=== PATIENT | female | born 1975 | race Caucasian/White ===

== ENCOUNTER → 2017-06-27 | Outpatient (CLI) | payer OTHER ==
[~2017-06-27] MED LIST: CHOL100027 PO; HYDR0.5T PO; NRN600 PO; OMEGCAP2 PO; SIMV10TA2 PO; TYLOTC500 PO; ULT/50 PO
--- NOTE | 2017-06-28 14:26 | MAMMOGRAPHY REPORT ---
BILATERAL DIGITAL SCREENING MAMMOGRAM TOMOSYNTHESIS WITH CAD: 06/27/2017 CLINICAL HISTORY: Routine screening. Patient has no complaints. TECHNIQUE: Breast tomosynthesis in addition to standard 2D mammography was performed. Current study was also evaluated with a Computer Aided Detection (CAD) system. COMPARISON: Comparison is made to exams dated: 01/30/2016 ultrasound, 01/30/2016 mammogram - [facility], 01/28/2015 mammogram, 01/28/2015 ultrasound, 08/20/2014 mammogram, and 08/20/2014 ultras ound - [facility]. BREAST COMPOSITION: There are scattered areas of fibroglandular density in both breasts. FINDINGS: The parenchymal pattern is unchanged. No developing mass, architectural distortion or clus ter of suspicious microcalcifications is seen in either breast. IMPRESSION: ACR BI-RADS CATEGORY 2: BENIGN There is no mammographic evidence of malignancy. A 1 year screening mammogram is recommended. The pa tient will receive written notification of the results. Approximately 10% of breast cancers are not detected with mammography. A negative mammographic report should not delay biopsy if a clinically suggestive mass is present. Aileen Guidry M.D. ay/:06/27/2017 15:27:17 Vegetable Preparer: Miriam BRANDT(Ann)(Carol), [facility] letter sent: Normal 1/2 BI-RADS Code: ACR BI-RADS Category 2: Benign
== END | disposition home or self-care (01) ==
LOC: C.MAMM 13:14
PROVIDERS: ATTEND Obstetrics & Gynecology
DX: Z12.31 Encounter for screening mammogram for malignant neoplasm of breast (principal)

== ENCOUNTER → 2017-11-21 | Day surgery (SDC) | payer OTHER ==
[2017-11-11 09:27] VITALS: Ht 167.6 cm; Wt 131.8 kg
[~2017-11-21] VITALS: Ht 167.6 cm; Wt 131.8 kg
[~2017-11-21] MED LIST changes: +GABA600T PO; -HYDR0.5T PO; +HYDR200T5 PO; +LIDOCAINE HCL 2% 2 ML VIAL (20MG/ML) ONE; -NRN600 PO; +OMEP20TA PO; +ONDANSETRON INJ 2 MG/ML 2 ML VIAL ONE; +PROPOFOL IV EMULSION 10 MG/ML 20 ML VIAL ONE; +SODIUM CHLORIDE 0.9% 500ML 500 ML IV ONE; -TYLOTC500 PO; -ULT/50 PO
--- NOTE | 2017-11-21 11:14 | Endo History and Physical ---
History & Physical Date of Service: Nov 21, 2017. Chief Complaint: change in bowel habits,bloating Referring Physician: Dr. Rosita Grimes History of Present Illness 41 yo CF who presents for colonoscopy secondary to change in bowel habits and bloating. Past Surgical History Hx Cardiac Surgery: No Hx Internal Defibrillator: No Hx Pacemaker: No Hx Abdominal Surgery: No Hx of Implantable Prosthesis: No Hx Cancer Surgery: No Hx Thoracic Surgery: No Hx Orthopedic: No Hx Urinary Tract Surgery: No Family History Colon CA, Polyp Social History Smoking Status: Never Smoker Hx Substance Use: No Hx Alcohol Use: Yes (RARELY) Allergies Coded Allergies: Penicillins (Verified Allergy, Mild, UNKNOWN, 11/21/17) Citalopram (Verified Adverse Reaction, Unknown, anxiety, 11/11/17) Current Medications Reported Home Medications Medications Dose Route/Sig Max Daily Dose Days Date Category Omeprazole 20 Mg Tab 1 Tab PO DAILY 90 11/11/17 Reported Plaquenil (Hydroxychloroquine Sulfate) 200 Mg Tab 1 Tab PO BID 30 11/11/17 Reported Neurontin (Gabapentin) 600 Mg Tab 600 Mg PO BID 11/11/17 Reported Vitamin D 1000 Unit (Cholecalciferol) 1,000 Unit Cap 2,000 Inter.unit PO DAILY 04/01/15 Reported Fish Oil ([place]-3 Fatty Acids) 1 Cap Cap 1 Cap PO TID 04/01/15 Reported Zocor (Simvastatin) 10 Mg Tab 10 Mg PO QPM 10/30/11 Reported Vital Signs Weight (Kilograms): 131.82 Height (Feet): 5 Height (Inches): 6 Date Time Temp Pulse Resp B/P (MAP) Pulse Ox O2 Delivery O2 Flow Rate FiO2 11/21/17 10:50 36.8 87 18 134/76 (95) 95 Room Air Physical Exam General Appearance: WD/WN, no apparent distress Respiratory/Chest: Auscultation: breath sounds normal Cardiovascular: Heart Auscultation: RRR Abdomen: Bowel Sounds: normal Inspection & Palpation: soft, non-distended, no tenderness, guarding & rebound Assessment and Plan Assessment: 41 yo CF who presents for colonoscopy secondary to change in bowel habits and bloating. Plan: Proceed with colonoscopy.
--- NOTE | 2017-11-21 12:05 | Discharge Instructions ---
Endoscopy Patient Instructions Date / Procedure(s) Performed Nov 21, 2017. Colonoscopy Allergy Information Coded Allergies: Penicillins (Verified Allergy, Mild, UNKNOWN, 11/21/17) Citalopram (Verified Adverse Reaction, Unknown, anxiety, 11/11/17) Discharge Date / Findings Nov 21, 2017. Random colon biopsies Medication Instructions OK to resume all medications today as prescribed Reported Home Medications Medications Dose Route/Sig Max Daily Dose Days Date Category Omeprazole 20 Mg Tab 1 Tab PO DAILY 90 11/11/17 Reported Plaquenil (Hydroxychloroquine Sulfate) 200 Mg Tab 1 Tab PO BID 30 11/11/17 Reported Neurontin (Gabapentin) 600 Mg Tab 600 Mg PO BID 11/11/17 Reported Vitamin D 1000 Unit (Cholecalciferol) 1,000 Unit Cap 2,000 Inter.unit PO DAILY 04/01/15 Reported Fish Oil ([place]-3 Fatty Acids) 1 Cap Cap 1 Cap PO TID 04/01/15 Reported Zocor (Simvastatin) 10 Mg Tab 10 Mg PO QPM 10/30/11 Reported Provider Instructions Activity Restrictions - No exercising or heavy lifting for 24 hours. - Do not drink alcohol the day of the procedure. - Do not drive a car or operate machinery until the day after the procedure. - Do not make any important decisions or sign important papers in 24 hours after the procedure. Following Day: - Return to full activity which may include returning to work/school. Diet Start your diet with liquids and light foods (jello, soup, juice, toast). Then eat your usual diet if not nauseated. Treatment For Common After Affects For mild abdominal pain, bloating, or excessive gas: - Rest - Eat lightly - Lie on right side Follow-Up Information Follow-up with Dr. Rosita Grimes as scheduled Anesthesia Information What You Should Know You have had a procedure that required some medicine to reduce anxiety and discomfort. This treatment is called moderate sedation. After receiving the treatment, you may be sleepy, but you will be able to breathe on your own. The effects of the treatment may last for several hours. Follow these instructions along with Activity/Diet recommendations noted above: * Do NOT do anything where dizziness or clumsiness would be dangerous. * Rest quietly at home today, then you can be up and about tomorrow. * Have a responsible person stay with you the rest of today. * You may have had an I.V. today. If so, you may take the dressing off later today. Recommendations Call your doctor if: * Trouble breathing * Continuous vomiting for more than 24 hours * Temperature above 101 degrees * Severe abdominal pain or bloating * Pain not relieved by pain medicine ordered * There is increased drainage or redness from any incision * A large amount of rectal bleeding greater than 2-3 tablespoons. (If you had a polyp/s removed or have hemorrhoids, a small amount of blood - from the rectum is to be expected.) * You have any unanswered questions or concerns. IN THE EVENT OF A SERIOUS EMERGENCY, GO TO THE NEAREST EMERGENCY ROOM Your discharge instructions were prepared by provider Robin Kemp. Patient Instructions Signature Page Cristal Osuna Patient (or Guardian) Signature/Date: I have read and understand the instructions given to me by my caregivers. Caregiver/RN/Doctor Signature/Date: The above-named patient and/or guardian has received patient instructions on this date. + Original Patient Signature Page (only) stays with chart. Please make copy for patient.
--- NOTE | 2017-11-21 12:09 | GI REPORT ---
Patient Name: Cristal Osuna Procedure Date: 11/21/2017 11:30 AM Date of : 1975 Admit Type: Outpatient Age: 41 Gender: Female Attending MD: Robin Kemp DO Procedure: Colonoscopy Providers: Robin Kemp DO Referring MD: Rosita Grimes Indications: Change in bowel habits Medicines: Monitored Anesthesia Care Complications: No immediate complications. Estimated Blood Loss: Estimated blood loss: none. Procedure: Pre-Anesthesia Assessment: - Prior to the procedure, a History and Physical was performed, and patient medications and allergies were reviewed. The patient's tolerance of previous anesthesia was also reviewed. The risks and benefits of the procedure and the sedation options and risks were discussed with the patient. All questions were answered, and informed consent was obtained. Prior Anticoagulants: The patient has taken no previous anticoagulant or antiplatelet agents. ASA Grade Assessment: II - A patient with mild systemic disease. After reviewing the risks and benefits, the patient was deemed in satisfactory condition to undergo the procedure. After I obtained informed consent, the scope was passed under direct vision. Throughout the procedure, the patient's blood pressure, pulse, and oxygen saturations were monitored continuously. The Scope was introduced through the anus and advanced to the terminal ileum. The colonoscopy was performed without difficulty. The patient tolerated the procedure well. The quality of the bowel preparation was good. The terminal ileum, ileocecal valve, appendiceal orifice, and rectum were photographed. Findings: The perianal and digital rectal examinations were normal. The colon (entire examined portion) appeared normal. Several random biopsies were obtained with cold forceps for histology in the entire colon. Impression: - The entire examined colon is normal. - Several random biopsies were obtained in the entire colon. Recommendation: - Resume previous diet. - Continue present medications. - Repeat colonoscopy for surveillance based on pathology results. - Return to primary care physician as previously scheduled. Robin Kemp DO 11/21/2017 12:08:58 PM This report has been signed electronically. Note Initiated On: 11/21/2017 11:30 AM Number of Addenda: 0 I attest to the content of the Intraoperative Record and orders documented therein, exceptions below {[id number]}
--- NOTE | 2017-11-21 12:38 | Anesthesiology Progress Note ---
Anesthesia Post Op Note Date & Time Nov 21, 2017 at 12:37 Vital Signs Pain Intensity: 0 Vital Signs Past 12 Hours Date Time Temp Pulse Resp B/P (MAP) Pulse Ox O2 Delivery O2 Flow Rate FiO2 11/21/17 12:25 80 18 123/85 (98) 96 Room Air 11/21/17 12:10 85 18 123/74 (90) 96 Room Air 11/21/17 10:50 36.8 87 18 134/76 (95) 95 Room Air Notes Mental Status: alert / awake / arousable, participated in evaluation Pt Amnestic to Procedure: Yes Nausea / Vomiting: adequately controlled Pain: adequately controlled Airway Patency, RR, SpO2: stable & adequate BP & HR: stable & adequate Hydration State: stable & adequate Anesthetic Complications: no major complications apparent
[2017-11-21 12:40] VITALS: BP 131/86; PULSE 77; O2SAT 96
== END | disposition home or self-care (01) ==
LOC: C.GI 10:20
PROVIDERS: ATTEND Internal Medicine
DX: R19.4 Change in bowel habit (principal); K21.9 Gastro-esophageal reflux disease without esophagitis; F32.9 Major depressive disorder, single episode, unspecified; Z88.0 Allergy status to penicillin; Z80.0 Family history of malignant neoplasm of digestive organs

== ENCOUNTER → 2018-02-10 | Outpatient (CLI) | payer OTHER ==
[~2018-02-10] MED LIST changes: -LIDOCAINE HCL 2% 2 ML VIAL (20MG/ML) ONE; -ONDANSETRON INJ 2 MG/ML 2 ML VIAL ONE; -PROPOFOL IV EMULSION 10 MG/ML 20 ML VIAL ONE; -SODIUM CHLORIDE 0.9% 500ML 500 ML IV ONE
--- NOTE | 2018-02-11 05:41 | PAP/PSG TECHNICIAN REPORT ---
[facility] Frame Feeder Polysomnogram Report Study name: None Report date: 02/11/2018 Study date: 02/10/2018 Referring Physician: Dr. Kevin Kohler DO Name: MARY KATE COX Interpreting Physician: Kevin Kohler D.O. Date of : 1975 Frame Feeder: GIANLUCA Padgett. Sex: Female Age: 42 StudyType: PSG PAP Weight: 303.3 lbs Height: 42 years, Height 5' 5" Neck Circum:17.25inches BMI: 50.47 Medications: Omeprazole 20mg, PEG-3350/electrolytes 236gm, [place] 3 Fish Oil, Simvastatin 10mg, Gabapentin 600mg, Plaquenil 200mg, Estrace 0.1mg/gm, Vit D Patient History Study started on room air with 5cwp CPAP in room #8. 42 yr old female here [facility] for a titration study. She has been using cpap since 2001 at a setting of 8cwp. She has gained about 50 pounds. Her ESS=9/24. Neck circ=17.25inches. She has been feeling tired lately. She uses an old model of a nasal cushion system that they don't even make anymore. She is a mouth breather and [facility] will be trying a full-face mask. Parameters Monitored NPSG: E1-M2, E2-M1, Fp1-M2, Fp2-M1, F3-M2, F4-M2, F4-M1, C3-M2, C4-M2, C4-M1, O1-M2, O2-M2, O2-M1, T3-M2, T4-M1, P3-M2, P4-M1, CHIN1, CHIN2, HR, EKG, Legs, PFLOW, SNOR, FLOW, CFLOW, Tidal Volume, THOR, ABDO, SpO2, PLTH, CPRESS, ETCO2 Wave, ETCO2, pH Sleep Architecture Sleep Stages Time at Lights Off 10:34:29 PM STAGES Time (min.) TST (%) Time at Lights On 5:17:59 AM Wake 59.5 -- Total Recording Time (TRT) 404.00 min. N1 8.0 2 Total Sleep Period (TSP) 369.0 min. N2 214.0 62 Total Sleep Time (TST) 344.0min. N3 67.5 20 Awake Time 60.0 min. REM 54.5 16 Wake after Sleep Onset 42.0 min. Sleep Efficiency (SE) 85 % Sleep Onset Latency (DAWNA) 17.5 min. Number of Stage 1 Shifts None Awakenings 11 Stage Changes 48 Number of REM periods 5 REM 54.5 16 REM Latency 115.5 min. NREM 289.5 84 Body Position Analysis Supine Right Left Side Prone Vertical Total Sleep Time (min.) 48.0 310.8 0.0 310.83 0.0 0.0 Total Sleep Time (%) 10% 90% 0% 90 0% N/A% Total Sleep Time REM (min.) 0.0 54.5 0.0 None 0.0 0.0 Total Sleep Time NREM (min.) 33.2 256.3 0.0 None 0.0 0.0 Intermittent Wake (min.) 14.9 44.6 0.0 None 0.0 0.0 Total Sleep Period (%) 11% None None None None None Arousals Myoclonus (PLM) * Events Count Index Events Count Index Spontaneous 9 2 Events Awake (PLMW) 52 52.4 Respiratory 4 0.7 Events Asleep w/ Arousal (PLMA) 2 0.3 PLM 1 0 Events Asleep w/o Arousal (PLMS) 17 3.0 Snoring 4 1 Total Asleep 19 3.3 Total 18 3 Total 71 11 Respiratory Analysis * CA OA MA CH H RERA Total Count 0 0 0 0 8 0 8 Index 0.0 0.0 0.0 0 1.4 0 1.4 Mean Duration 0.0 0.0 0.0 0.00 29.4 0.0 29.4 Longest Duration 0.0 0.0 0.0 0.00 0.0 0.0 56.5 Respiratory Event Summary Total Supine ~Supine Right Left Prone REM NREM Apneas Count 0 0 0 0 N/A N/A 0 0 Index 0.0 0 0 0.0 N/A N/A 0 0 Hypopneas (4% Desat) Count 8 0 8 8 N/A N/A 0 8 Index 1.4 0.0 2 1.5 N/A N/A 0.0 1.7 Apneas & All Hypopneas Count 8 0 8 8 N/A N/A 0 8 Index 1.4 0 2 2 N/A N/A 0.0 1.7 Respiratory Events (Framework Developer+All Hyp+RERA) Count 8 0 8 8 N/A N/A 0 8 Index 1.4 0 2 1.5 N/A N/A 0.0 1.7 Respiratory Related Arousal Count 4 0 4 4 N/A N/A 0 4 Index 0.7 0 1 1 N/A N/A 0 1 Snoring Analysis Supine Right Left Prone REM NREM Total Snore duration 0.9 min Snores count 17 13 N/A N/A 0 30 30 Snore mean duration 1.8 Sec Snores index 31 3 N/A N/A 0.0 6.2 5.2 TST with snoring (%) 0.3% Desaturation Event Summary: Minimum %SpO2 Event Count Mean/Min/Max Duration(sec.) Desaturation Index % Time In Bed > 90 37 31.1 / 8.8 / 58.5 9.2 59.9 86 - 90 8 27.0 / 10.0 / 46.0 3.0 40.0 81 - 85 0 N/A 0.0 0.1 76 - 80 0 N/A 0.0 0.0 71 - 75 0 N/A 0.0 0.0 66 - 70 0 N/A 0.0 0.0 61 - 65 0 N/A 0.0 0.0 56 - 60 0 N/A 0.0 0.0 51 - 55 0 N/A 0.0 0.0 < 50 0 N/A 0.0 0.0 Total REM NREM Awake <50% 0.0 min. 0.0 min. 0.0 min. 0.0 min. 51 - 60% 0.0 min. 0.0 min. 0.0 min. 0.0 min. 61 - 70% 0.0 min. 0.0 min. 0.0 min. 0.0 min. 71 - 80% 0.0 min. 0.0 min. 0.0 min. 0.0 min. 81 - 90% 161.2 min. 6.7 min. 139.0 min. 15.5 min. 91 - 100% 240.9 min. 47.8 min. 150.4 min. 42.7 min. Average 91 92 91 92 Minimum SpO2 85 88 85 85 Desaturation Event Index 5.8 0.0 2.7 26.2 # Desat. Events below 89% 15 N/A 7 8 Time(%) with Saturation below 89% 3.5 0.0 3.0 0.5 Time(min.) with Saturation below 89% 14.3 0.1 12.0 2.2 Time (mins) REM (mins) NREM (mins) % of TST SpO2 Below 90% 13 N/A N13 19.0 SpO2 Below 88% 4 0 0 1 Heart Rate Analysis Min (bpm) Max (bpm) Average (bpm) Awake 65 108 81 NREM 58 102 76 REM 57 85 73 Overall 57 102 76 Supplemental O2 Values Minimum O2 level: None Value Start Time End Time Frame Feeder Comments Ms. Cox slept in the right and supine positions. No cardiac arrhythmia or PLM's noted. No bruxism noted. CPAP was initiated at +5 CMH2O and up-titrated to a level of +6 CMH2O. A small Quattro Air full face mask by [employer] was used during titration. She did not use the restroom during the night. She stated that she slept fairly well but her abdomen was full of air. The final report will be interpreted and signed by a sleep physician. The completed physician report will then be placed in the patient medical record. Therapy Event: Therapy (cm H20) 0 5 6 Total Time at Pressure (min.) 0.4 78.0 325.1 TST at Pressure (min.) 0.0 49.9 294.1 # Periods 1 1 1 Sleep Onset (min.) N/A 17.1 0.0 REM Onset (min.) N/A N/A 54.6 Sleep Efficiency % 0 64 90 Wakefulness (%) 100.0 36.0 9.5 Wakefulness (min.) 0.4 28.1 31.0 NREM 1 (%) 0.0 3.8 1.5 NREM 1 (min.) 0.0 3.0 5.0 NREM 2 (%) 0.0 14.6 62.3 NREM 2 (min.) 0.0 11.4 202.6 NREM 3 (%) 0.0 45.5 9.8 NREM 3 (min.) 0.0 35.5 32.0 REM (%) 0.0 0.0 16.8 REM (min.) 0.0 0.0 54.5 # Arousals N/A 5 13 Arousal Index N/A 6.0 2.7 # Snore N/A 10 20 Snore Index N/A 12.0 4.1 AHI N/A 4.8 0.8 AHI Supine N/A N/A 0.0 AHI Non-Supine N/A 4.8 0.9 NREM AHI N/A 4.8 1.0 REM AHI N/A N/A 0.0 RDI N/A 4.8 0.8 # Obstructive N/A 0 0 # Central Ap N/A 0 0 # Mixed N/A 0 0 # Hypopneas N/A 4 4 RERAS N/A 0 0 Total Respiratory Events N/A 4 4 Time Below SpO2 89.00% (min.) 0.0 2.3 9.8 Mean NREM SpO2 (%) N/A 90 91 Mean REM SpO2 (%) N/A N/A 92 Mean Sleep SpO2 (%) N/A 90 91 Min NREM SpO2 (%) N/A 85 85 Min REM SpO2 (%) N/A N/A 88 Position Supine (min.) 0.0 0.0 33.2 Position Non-supine (min.) 0.0 49.9 260.9 LM Index Sleep N/A 10.8 2.0 LM Index NREM N/A 10.8 1.8 LM Index REM N/A N/A 3.3 Mean Heart Rate (bpm) N/A 81 75 Min Heart Rate (bpm) N/A 75 57
--- NOTE | 2018-02-15 21:14 | POLYSOMNOGRAPH REPORT ---
CLINICAL DATA: The patient is a 42-year-old female with a history of sleep apnea since 2001. Her initial apnea hypopnea index was 97.3 representing severe sleep apnea. She has been on nasal CPAP at 8 cm. Her last titration was 2009. She has gained 50 pounds in the past 10 months. She is not sleeping well. She has been having nocturnal gasping and she is not feeling refreshed. The [place] sleepiness scale score is 9. This was an in-lab CPAP re-titration. SLEEP ARCHITECTURE: The total sleep period was 369 minutes. The total sleep time was 344 minutes. The sleep efficiency was 85%. This would be mildly reduced from normal. The sleep latency was 17.5 minutes. Wake after sleep onset was elevated at 42 minutes. The REM latency was prolonged at 115.5 minutes. There were 3 REM periods during the night. Sleep consisted of stage N1 2%, stage N2 62%, stage N3 20%, stage REM 16%. AROUSAL DATA: The patient had 18 arousals including 4 snoring arousals, 1 PLM arousal, 4 respiratory arousals, and 9 spontaneous arousals. The arousal index was 3. PLM DATA: The patient had a total of 19 periodic limb movements of sleep for a PLM index of 3.3. There were 2 arousals, associated with limb movements for a PLM arousal index of 0.3. EKG: The minimum heart rate was 57 beats per minute. The average heart rate was 76 beats per minute. No arrhythmia noted. RESPIRATORY DATA: The patient's respiratory events were treated with nasal CPAP. She had a total of 8 respiratory events, all hypopneas. Hypopneas were scored according to the 4% desaturation rule. The mean duration of the hypopneas was 29.4 seconds. The apnea hypopnea index was 1.4. At the final pressure of 6 cm, the apnea hypopnea index was 0.8. OXIMETRY DATA: The average saturation for the night was 91%. The minimum saturation was 85%. There was a total of 14.3 minutes with saturations less than 89%. At the final pressure, there were no significant desaturations. CONDENSER TUBE TENDER COMMENTS: Ms. Osuna slept in the right and supine positions. No cardiac arrhythmia noted. No bruxism noted. CPAP was initiated at 5 cm and up titrated to a level of 6 cm. A small [employer] Quattro Air full face mask was used. She did not use the restroom during the night. She stated that she slept fairly well but her abdomen was full of air. IMPRESSION: Obstructive sleep apnea -- resolved with nasal CPAP at 6 cm. COMMENTS: The patient did well with this titration study. She previously had been using nasal pillows. She is, however, a mouth breather and others had noticed that she was opening her mouth. Thus, a full face mask was tried. It appears that she can be well treated with a slightly lower pressure than previously. RECOMMENDATIONS: 1. It is advised that the patient's CPAP be set at 6 cm. 2. The patient does need a new CPAP machine. Hers is old, greater than 7 years. She does not currently have access for compliance data. 3. Mask of choice is to be ordered. The patient is very concerned that she will have problems with a full facemask. If the nasal mask is utilized, she might try a chin strap. 4. Weight loss is advised in light of the elevation of body mass index at 50.47. 5. She should allow sufficient sleep time of 7.5-8 hours of sleep per night and she should have a regular sleep-wake schedule.
== END | disposition home or self-care (01) ==
LOC: C.NEUR 21:00
PROVIDERS: ATTEND Internal Medicine Pulmonary Disease
DX: G47.33 Obstructive sleep apnea (adult) (pediatric) (principal)

== ENCOUNTER 2020-05-15 17:04 | Inpatient (IN) ==
[2020-05-15] MEDS ORDERED: diphenhydrAMINE 50 MG/ML VIAL IV STA (18:32)
[2020-05-15] MEDS ORDERED: ACETAMINOPHEN 1,000 MG/100 ML VIAL IV STA (18:32)
[2020-05-15] MEDS ORDERED: SODIUM CHLORIDE 0.65% NA SOLN 45 ML (OCEAN) ONE (18:32)
[2020-05-15] MEDS ORDERED: SODIUM CHLORIDE 0.9% 1000ML 1,000 ML IV ONE (18:32)
[2020-05-15] MEDS ORDERED: guaiFENesin 600 MG TABCR PO STA (18:32)
[2020-05-15] MEDS ORDERED: DEXAMETHASONE SOD INJ 10 MG/ML VIAL IV ONE (18:32)
[2020-05-15] MEDS ORDERED: ALBUT/IPRATROP 3MG/0.5MG NEB 3 ML VIAL NEB ONE (18:35)
[2020-05-15 19:00] LABS: Basophils # (auto) 0.02 K/uL (0-0.2); Basophils % (auto) 0.3 %; Eosinophils # (auto) 0.01 K/uL (0-0.5); Eosinophils % (auto) 0.2 %; Hematocrit (blood only) 39.2 % (37-47); Hemoglobin 12.3 g/dL (12.0-16.0); Immature Granulocytes # (auto) 0.01 K/uL (0.00-0.02); Immature Granulocytes % (auto) 0.2 %; Lymphocytes # (auto) 2.13 K/uL (1.2-3.4); Lymphocytes % (auto) 32.4 %; Mean Corpuscular Hgb Conc 31.4 g/dL (32-36); Mean Corpuscular Volume 86.2 fL (80-100); Monocytes % (auto) 6.1 %; Neutrophils # (auto) 4.01 K/uL (1.4-6.5); Neutrophils % (auto) 60.8 %; Platelet Count 261 K/uL (130-400); RDW Standard Deviation 50.5 fL (36.4-46.3); Red Blood Count 4.55 M/uL (4.2-5.4); White Blood Count 6.58 K/uL (4.8-10.8)
--- NOTE | 2020-05-15 19:03 | Emergency Department Note ---
Impression & Plan Pneumonia due to COVID-19 virus, Hypoxia, Shortness of breath ED Provider Note NAME: MARY KATE COX AGE: 44 SEX: F ARRIVES VIA: Walk-In INFORMANT: Patient, ED PROVIDER(S): Rico Mendenhall MD CHIEF COMPLAINT: Covid19, cough, shortness of breath PLAN: Disposition: Admit MEDICAL DECISION MAKING: The patient is a pleasant 44-year-old woman with a past medical history of SHYANN on nocturnal CPAP, history of Sjogren's syndrome on Plaquenil, hyperlipidemia, GERD who presents emerged department for evaluation of after having worsening cough, congestion and shortness of breath in the setting of having acute onset of fever, body aches and respiratory symptoms Tuesday with subsequent outpatient COVID-19 PCR test resulting as positive. The patient works at [employer] while they have had positive cases that they were made aware of but she is not aware of being in direct contact with any of these individuals and has not herself been directly contacted as a part of their contact tracing. Otherwise she reports she lives by herself and does not go out to large gatherings and has been being careful. She reports her shortness of breath has progressively been getting worse despite using [id number] Mucinex and being started on doxycycline by her PCP prior to her Covid results as she has a history of respiratory infections requiring antibiotics. On arrival the patient is fatigued and mildly dyspneic appearing but no acute distress, afebrile with stable vital signs. On exam she appears clinically dry. She does have a scant intermittent wheeze but is otherwise clear though with a frequent semiproductive cough. Given the patient's bronchospastic component to her symptoms with audible wheeze on exam she was treated with dose of dexamethasone as well as continuous DuoNeb in addition to expectorant and antihistamine. EKG without overt acute ischemia. Chest x-ray does demonstrate bilateral pulmonary interstitial opacities which given the patient's positive COVID-19 status likely reflects COVID-19 pneumonia. WBC, H/H and platelets within normal limits. Potassium 3.2 and electrolytes otherwise unremarkable. Chemistry without acidosis. LFTs unremarkable. Troponin negative/undetectable. BNP within normal limits. Lipase within normal limits. Upon reevaluation patient was feeling improved after her treatment and had resolution of her persistent cough and wheeze in addition to improved work of breathing. Unfortunately, however, despite being observed almost an hour after her nebulizer treatment she was persistently hypoxic to 88% on room air. Thus, given the patient's hypoxia in the setting of her COVID-19 infection reasonable to admit the patient for further management. The patient is agreeable with this plan. Case was discussed with MARIA ELENA He hospitalist, who will evaluate the patient for admission. Triage Nursing notes reviewed and agree them. Prior medical records reviewed Vital Signs: reviewed and remarkable for hypoxia. Differential diagnosis: Cardiac ischemia, aortic dissection, pulmonary embolism, pneumothorax, pneumonia, pericarditis, myocarditis, esophageal rupture, GERD, cholecystitis, pancreatitis, musculoskeletal, as well as other pathologies. ER treatment provided: See below. Diagnostics interpreted by me: ECG: Sinus rhythm with premature supra ventricular complexes, 90 bpm, no overt ST elevation or depression, QTC 426, QRS 94. Cardiac Monitoring: An order for continuous cardiac monitoring was placed and demonstrated Sinus rhythm with premature supra ventricular complexes, 90 bpm Laboratory studies: See below Imaging studies: R chest 1V portable CLINICAL HISTORY: Atypical chest pain COMPARISON STUDY: 11/02/2018 FINDINGS: The heart is the upper limits of normal in size. There are bilateral interstitial opacities, edema versus infectious/inflammatory process. Clinical and radiographic follow-up is recommended. There are no significant pleural effusions.[ IMPRESSION: 1. Bilateral pulmonary interstitial opacities, edema versus an infectious/inflammatory process. Clinical and radiographic follow-up recommended. Consultation(s): MARIA ELENA He hospitalist. HPI: The patient is a pleasant 44-year-old woman with a past medical history of SHYANN on nocturnal CPAP, history of Sjogren's syndrome on Plaquenil, hyperlipidemia, GERD who presents emerged department for evaluation of after having worsening cough, congestion and shortness of breath in the setting of having acute onset of fever, body aches and respiratory symptoms Tuesday evening with subsequent outpatient COVID-19 PCR test resulting as positive. The patient works at [employer] while they have had positive cases that they were made aware of she is not aware of being in direct contact with any of these individuals and has not herself been directly contacted as a part of their contact tracing. Otherwise she reports she lives by herself and does not go out to large gatherings and has been being careful. She reports her shortness of breath has progressively been getting worse despite using [id number] Mucinex and being started on doxycycline by her PCP prior to her Covid results as she has a history of respiratory infections requiring antibiotics. ROS: See above HPI for pertinent positives & negatives. A total of 10 systems reviewed and were otherwise negative. PAST MEDICAL HISTORY:See Below PAST SURGICAL HISTORY:See Below FAMILY HISTORY:See Below SOCIAL HISTORY:See Below HOME MEDICATIONS:See Below ALLERGIES:See Below VITALS:See Below PHYSICAL EXAMINATION: GENERAL: Awake, alert, fatigued-appearing, in no distress, BMI 49.2 HENT: Normocephalic, atraumatic. Oropharynx with dry mucous membranes and othe rwise unremarkable. EYES: Normal conjunctiva. Sclera non-icteric. NECK: Supple. No nuchal rigidity. FROM. No JVD. RESPIRATORY: Scant intermittent wheeze and otherwise clear. Mildly dyspneic with slight increased work of breathing. CARDIAC: Tachycardic rate, normal rhythm. Extremities warm and well perfused. Pulses equal. ABDOMEN: Soft, non-distended. No tenderness to palpation. No rebound or gua rding. No masses. RECTAL: Deferred. MUSCULOSKELETAL: Chest examination reveals no tenderness. The back is symmetrical on inspection without obvious abnormality. There is no CVA tenderness to palpation. No joint edema. LOWER EXTREMITIES: Calves are equal size bilaterally and non-tender. No edema. No discoloration. NEURO: Normal sensorium. No sensory or motor deficits noted. SKIN: No rash or jaundice noted. Rico Mendenhall MD Past Med/Surg History Medical History Bladder mass leiomyoma GERD (gastroesophageal reflux disease) Hyperlipidemia Impaired fasting glucose Obstructive sleep apnea Sjogrens syndrome with peripheral neuropathy and Raynaud's Small fiber neuropathy Vitamin D deficiency Surgical History H/O breast biopsy History of colonoscopy Family History Mother Ovarian cancer Grandmother (Paternal) Myocardial infarction Uncle Prostate cancer Colonic polyp Denies family history of Breast cancer Social History Smoking Status: Never smoker Second Hand Exposure: No; Hx Alcohol Use: No Hx Substance Use: No Preferred Language: Setswana Communication Ability: Effective Visual Impairment: No Limitations Hearing Ability: Normal [employer] Required: No Beliefs That Will Affect Care: None marital status: Single Current Living Situation: Alone current occupational status: unemployed Feels Safe at Home: Yes Dental Care, Regularly: Yes Physical Activity Frequency: Daily Assistive Devices: CPAP and Glasses Allergies Allergies Allergy/AdvReac Type Severity Reaction Status Date / Time Penicillins Allergy Mild Unknown Verified 05/15/20 22:18 citalopram AdvReac Unknown Anxiety Verified 05/15/20 22:18 Home Meds Home Medications Medication Instructions Recorded Confirmed hydroxychloroquine [Plaquenil] 200 mg PO BID 10/19/18 05/15/20 furosemide 40 mg PO DAILY 11/27/18 05/15/20 sennosides 8.6 mg-docusate sodium 2 tab PO QPM tab 05/06/19 05/15/20 50 mg tablet gabapentin 300 mg capsule 300 mg PO BID 01/11/20 05/15/20 cholecalciferol (vitamin D3) 2,000 unit PO DAILY 05/15/20 05/15/20 [Vitamin D3] Previous Rx's Medication Instructions Recorded simvastatin 10 mg tablet 10 mg PO HS #90 tab 04/10/20 doxycycline hyclate 100 mg capsule 100 mg PO BID #14 cap 05/12/20 Results & Data (ED) Vital Signs Vital Signs - 24 hr 05/15/20 17:08 05/15/20 19:13 05/15/20 19:20 Temperature 37.1 C Temperature Source Oral Pulse Rate 105 H 86 85 Pulse Rate [Right Finger] Pulse Rate from SpO2 Sensor 86 86 Respiratory Rate 22 22 26 H Respiratory Effort / Characteristics Short of Breath Respiratory Depth Normal Blood Pressure 157/84 H 142/89 H Blood Pressure Mean 108 95 Pulse Oximetry 94 93 91 Oxygen Delivery Method Room Air Oxygen Flow Rate Sepsis Recent Fever Within 48 Hours No Sepsis New/Unexplained Change in Mental Status N/A Sepsis Action Taken by Nursing No Action Required Oxygen Flow Rate - Titration Pulse Oximetry Post Tiitration 05/15/20 19:30 05/15/20 20:00 05/15/20 20:10 Temperature Temperature Source Pulse Rate 84 85 Pulse Rate [Right Finger] 85 Pulse Rate from SpO2 Sensor 84 83 Respiratory Rate 27 H 23 16 Respiratory Effort / Characteristics Non-Labored Spontaneous Respiratory Depth Blood Pressure 136/85 134/83 Blood Pressure Mean 93 106 Pulse Oximetry 92 91 92 Oxygen Delivery Method Nasal Cannula Oxygen Flow Rate Sepsis Recent Fever Within 48 Hours Sepsis New/Unexplained Change in Mental Status Sepsis Action Taken by Nursing Oxygen Flow Rate - Titration Pulse Oximetry Post Tiitration 05/15/20 20:30 05/15/20 21:00 05/15/20 21:10 Temperature Temperature Source Pulse Rate 81 91 H 90 Pulse Rate [Right Finger] Pulse Rate from SpO2 Sensor 80 86 89 Respiratory Rate 23 21 26 H Respiratory Effort / Characteristics Respiratory Depth Blood Pressure 140/80 144/75 H Blood Pressure Mean 105 96 Pulse Oximetry 98 98 97 Oxygen Delivery Method Oxygen Flow Rate Sepsis Recent Fever Within 48 Hours Sepsis New/Unexplained Change in Mental Status Sepsis Action Taken by Nursing Oxygen Flow Rate - Titration Pulse Oximetry Post Tiitration 05/15/20 21:20 05/15/20 21:30 05/15/20 21:37 Temperature 36.6 C Temperature Source Pulse Rate 92 H 97 H 97 H Pulse Rate [Right Finger] Pulse Rate from SpO2 Sensor 89 97 H Respiratory Rate 22 22 22 Respiratory Effort / Characteristics Respiratory Depth Blood Pressure 163/88 H Blood Pressure Mean 103 Pulse Oximetry 97 97 97 Oxygen Delivery Method Room Air Room Air Oxygen Flow Rate Sepsis Recent Fever Within 48 Hours Sepsis New/Unexplained Change in Mental Status Sepsis Action Taken by Nursing Oxygen Flow Rate - Titration Pulse Oximetry Post Tiitration 05/15/20 21:40 05/15/20 21:50 05/15/20 21:54 Temperature Temperature Source Pulse Rate 106 H 102 H Pulse Rate [Right Finger] Pulse Rate from SpO2 Sensor 110 H 103 H Respiratory Rate 26 H 20 Respiratory Effort / Characteristics Respiratory Depth Blood Pressure Blood Pressure Mean Pulse Oximetry 89 L 89 L 87 L Oxygen Delivery Method Room Air Oxygen Flow Rate Sepsis Recent Fever Within 48 Hours Sepsis New/Unexplained Change in Mental Status Sepsis Action Taken by Nursing Oxygen Flow Rate - Titration 2 Pulse Oximetry Post Tiitration 90 05/15/20 22:00 05/15/20 22:10 05/15/20 22:20 Temperature Temperature Source Pulse Rate 107 H 107 H 110 H Pulse Rate [Right Finger] Pulse Rate from SpO2 Sensor 108 H 108 H 105 H Respiratory Rate 19 27 H 27 H Respiratory Effort / Characteristics Respiratory Depth Blood Pressure 138/76 Blood Pressure Mean 99 Pulse Oximetry 91 92 92 Oxygen Delivery Method Oxygen Flow Rate Sepsis Recent Fever Within 48 Hours Sepsis New/Unexplained Change in Mental Status Sepsis Action Taken by Nursing Oxygen Flow Rate - Titration Pulse Oximetry Post Tiitration 05/15/20 22:30 05/15/20 22:31 05/15/20 22:40 Temperature Temperature Source Pulse Rate 108 H 108 H 108 H Pulse Rate [Right Finger] Pulse Rate from SpO2 Sensor 108 H 106 H 104 H Respiratory Rate 27 H 33 H 31 H Respiratory Effort / Characteristics Respiratory Depth Blood Pressure 135/70 Blood Pressure Mean 90 Pulse Oximetry 92 92 92 Oxygen Delivery Method Nasal Cannula Oxygen Flow Rate 2 Sepsis Recent Fever Within 48 Hours Sepsis New/Unexplained Change in Mental Status Sepsis Action Taken by Nursing Oxygen Flow Rate - Titration Pulse Oximetry Post Tiitration 05/15/20 22:50 05/15/20 23:00 05/15/20 23:10 Temperature Temperature Source Pulse Rate 103 H 105 H 106 H Pulse Rate [Right Finger] Pulse Rate from SpO2 Sensor 102 H 102 H 106 H Respiratory Rate 23 26 H 32 H Respiratory Effort / Characteristics Respiratory Depth Blood Pressure Blood Pressure Mean Pulse Oximetry 93 91 93 Oxygen Delivery Method Oxygen Flow Rate Sepsis Recent Fever Within 48 Hours Sepsis New/Unexplained Change in Mental Status Sepsis Action Taken by Nursing Oxygen Flow Rate - Titration Pulse Oximetry Post Tiitration Laboratory Data Attestation: I reviewed the patient's lab results. Result diagrams: 05/15/20 18:46 05/15/20 18:46 Lab Results 05/15/20 05/15/20 05/15/20 Range/Units 18:46 18:46 18:46 WBC 6.58 (4.8-10.8) K/uL RBC 4.55 (4.2-5.4) M/uL Hgb 12.3 (12.0-16.0) g/dL Hct 39.2 (37-47) % MCV 86.2 (80-100) fL MCH 27.0 (25-34) pg MCHC 31.4 L (32-36) g/dL RDW Std Deviation 50.5 H (36.4-46.3) fL RDW Coeff of Nahid 16.0 H (11.5-14.5) % Plt Count 261 (130-400) K/uL MPV 10.0 (7.4-10.4) fL Immature Gran % (Auto) 0.2 % Neut % (Auto) 60.8 % Lymph % (Auto) 32.4 % [place] % (Auto) 6.1 % Eos % (Auto) 0.2 % Baso % (Auto) 0.3 % Neut # (Auto) 4.01 (1.4-6.5) K/uL Lymph # (Auto) 2.13 (1.2-3.4) K/uL [place] # (Auto) 0.40 (0.11-0.59) K/uL Eos # (Auto) 0.01 (0-0.5) K/uL Baso # (Auto) 0.02 (0-0.2) K/uL Immature Gran # (Auto) 0.01 (0.00-0.02) K/uL ESR (0-21) mm/hr PT 10.7 (9.0-12.0) Seconds INR 1.0 (0.9-1.1) APTT 29.5 (21.0-31.0) Seconds PTT Ratio 1.1 Sodium 140 (136-145) mmol/L Potassium 3.2 L (3.5-5.1) mmol/L Chloride 106 (98-107) mmol/L Carbon Dioxide 28 (21-32) mmol/L Anion Gap 6.0 (3-11) BUN 9 (7-18) mg/dl Creatinine 0.79 (0.6-1.2) mg/dl Est Cr Clr Drug Dosing 123.3 ml/min Est GFR ( Amer) 104.0 Est GFR (Non-Af Amer) 89.8 BUN/Creatinine Ratio 11.5 (10-20) Glucose 118 H (70-99) mg/dl Calcium 8.7 (8.5-10.1) mg/dl Phosphorus 2.8 (2.5-4.9) mg/dl Magnesium 2.2 (1.8-2.4) mg/dl Ferritin 65.5 (8-388) ng/ml Total Bilirubin 0.3 (0.2-1) mg/dl Direct Bilirubin < 0.1 (0-0.2) mg/dl AST 24 (15-37) U/L ALT 30 (12-78) U/L Alkaline Phosphatase 75 (45-117) U/L Total Creatine Kinase 347 H (26-192) U/L Troponin I < 0.015 (0-0.045) ng/ml C-Reactive Protein 5.02 H (0-0.29) mg/dl NT-Pro-B Natriuret Pep 24 (0-450) pg/ml Total Protein 8.0 (6.4-8.2) gm/dl Albumin 2.9 L (3.4-5.0) gm/dl Globulin 5.1 H (2.5-4.0) gm/dl Albumin/Globulin Ratio 0.6 L (0.9-2) Lipase 98 (73-393) U/L Procalcitonin (0-0.5) ng/ml HCG, Qual (Negative) 05/15/20 05/15/20 05/15/20 Range/Units 18:46 18:46 18:46 WBC (4.8-10.8) K/uL RBC (4.2-5.4) M/uL Hgb (12.0-16.0) g/dL Hct (37-47) % MCV (80-100) fL MCH (25-34) pg MCHC (32-36) g/dL RDW Std Deviation (36.4-46.3) fL RDW Coeff of Nahid (11.5-14.5) % Plt Count (130-400) K/uL MPV (7.4-10.4) fL Immature Gran % (Auto) % Neut % (Auto) % Lymph % (Auto) % [place] % (Auto) % Eos % (Auto) % Baso % (Auto) % Neut # (Auto) (1.4-6.5) K/uL Lymph # (Auto) (1.2-3.4) K/uL [place] # (Auto) (0.11-0.59) K/uL Eos # (Auto) (0-0.5) K/uL Baso # (Auto) (0-0.2) K/uL Immature Gran # (Auto) (0.00-0.02) K/uL ESR 85 H (0-21) mm/hr PT (9.0-12.0) Seconds INR (0.9-1.1) APTT (21.0-31.0) Seconds PTT Ratio Sodium (136-145) mmol/L Potassium (3.5-5.1) mmol/L Chloride (98-107) mmol/L Carbon Dioxide (21-32) mmol/L Anion Gap (3-11) BUN (7-18) mg/dl Creatinine (0.6-1.2) mg/dl Est Cr Clr Drug Dosing ml/min Est GFR ( Amer) Est GFR (Non-Af Amer) BUN/Creatinine Ratio (10-20) Glucose (70-99) mg/dl Calcium (8.5-10.1) mg/dl Phosphorus (2.5-4.9) mg/dl Magnesium (1.8-2.4) mg/dl Ferritin (8-388) ng/ml Total Bilirubin (0.2-1) mg/dl Direct Bilirubin (0-0.2) mg/dl AST (15-37) U/L ALT (12-78) U/L Alkaline Phosphatase (45-117) U/L Total Creatine Kinase (26-192) U/L Troponin I (0-0.045) ng/ml C-Reactive Protein (0-0.29) mg/dl NT-Pro-B Natriuret Pep (0-450) pg/ml Total Protein (6.4-8.2) gm/dl Albumin (3.4-5.0) gm/dl Globulin (2.5-4.0) gm/dl Albumin/Globulin Ratio (0.9-2) Lipase (73-393) U/L Procalcitonin < 0.05 (0-0.5) ng/ml HCG, Qual Negative (Negative) Administered Medications Enoxaparin Sodium (Enoxaparin Inj 40 Mg/0.4 Ml Syr) 40 mg SQ BID@ [facility] Stop: 06/15/20 00:29 Last Admin: 05/16/20 02:14 Dose: 40 mg Documented by: [id number] Gabapentin (Gabapentin 300 Mg Cap) 300 mg PO BID@ [facility] Stop: 06/15/20 00:29 Last Admin: 05/16/20 02:15 Dose: 300 mg Documented by: [id number] Discontinued Medications Albuterol (Albut/Ipratrop 3mg/0.5mg Neb 3 Ml Vial) 12 ml NEB ONE ONE Stop: 05/15/20 18:36 Last Admin: 05/15/20 20:09 Dose: 12 ml Documented by: [id number] Dexamethasone (Dexamethasone Sod Inj 10 Mg/Ml Vial) 10 mg IV NOW ONE Stop: 05/15/20 18:33 Last Admin: 05/15/20 19:07 Dose: 10 mg Documented by: [id number] Diphenhydramine HCl (Diphenhydramine 50 Mg/Ml Vial) 25 mg IV NOW STA Stop: 05/15/20 18:33 Last Admin: 05/15/20 19:07 Dose: 25 mg Documented by: [id number] Guaifenesin (Guaifenesin 600 Mg Tabcr) 600 mg PO NOW STA Stop: 05/15/20 18:33 Last Admin: 05/15/20 19:08 Dose: 600 mg Documented by: [id number] Sodium Chloride (Nss 1000ml) 1,000 mls @ 999 mls/hr IV .Q1H1M ONE Stop: 05/15/20 19:32 Last Infusion: 05/15/20 21:07 Dose: 0 mls/hr Documented by: [id number] Admin: 05/15/20 18:53 Dose: 999 mls/hr Documented by: [id number] Acetaminophen (Ofirmev) 1,000 mg in 100 mls @ 400 mls/hr IV NOW STA Stop: 05/15/20 18:46 Last Infusion: 05/15/20 21:07 Dose: 0 mls/hr Documented by: [id number] Admin: 05/15/20 19:07 Dose: 400 mls/hr Documented by: [id number] Remdesivir 200 mg/ Sodium (Chloride) 250 mls @ 125 mls/hr IV NOW ONE; Protocol Stop: 05/16/20 02:29 Last Admin: 05/16/20 02:14 Dose: 125 mls/hr Documented by: [id number] Potassium Chloride (Potassium Chloride 20 Meq Tabcr) 40 meq PO NOW STA Stop: 05/15/20 22:02 Last Admin: 05/16/20 00:04 Dose: 40 meq Documented by: [id number] Sodium Chloride (Sodium Chloride 0.65% Na Soln 45 Ml ([place])) 2 sprays NA NOW ONE Stop: 05/15/20 18:33 Last Admin: 05/15/20 19:08 Dose: 2 sprays Documented by: [id number] Discharge Plan Visit Data Chief Complaint: Shortness of Breath/Dyspnea Stated Complaint: SOB, COV + ED Provider: Rico Mendenhall Discharge Problem: Pneumonia due to COVID-19 virus, Hypoxia, Shortness of breath Patient Disposition: Admitted As Inpatient Discharge Instructions Interventions: ED Discharge Assessment Last Done: 05/15/20 23:34
[2020-05-15 19:14] LABS: Partial Thromboplastin Ratio 1.1; Partial Thromboplastin Time 29.5 Seconds (21.0-31.0); Prothrombin Time 10.7 Seconds (9.0-12.0)
--- NOTE | 2020-05-15 19:15 | XRay Report ---
XR chest 1V portable CLINICAL HISTORY: Atypical chest pain COMPARISON STUDY: 11/02/2018 FINDINGS: The heart is the upper limits of normal in size. There are bilateral interstitial opacities , edema versus infectious/inflammatory process. Clinical and radiographic follow-up is recommended. T here are no significant pleural effusions.[ IMPRESSION: 1. Bilateral pulmonary interstitial opacities, edema versus an infectious/inflammatory process. Clini iman and radiographic follow-up recommended. ACT 112: Negative or not required by law. Electronically signed by: Rohit Fortune M.D. 05/15/2020 7:14 PM
[2020-05-15 19:20] LABS: Alanine Aminotransferase 30 U/L (12-78); Albumin Level 2.9 gm/dl (3.4-5.0); Aspartate Aminotransferase 24 U/L (15-37); BUN Creatinine Ratio 11.5 (10-20); Bilirubin Direct < 0.1 mg/dl (0-0.2); Blood Urea Nitrogen 9 mg/dl (7-18); Calcium 8.7 mg/dl (8.5-10.1); Carbon Dioxide 28 mmol/L (21-32); Chloride 106 mmol/L (98-107); Creatinine Clr Calc Pharmacy 123.3 ml/min; Est GFR (Non-African American) 89.8; Glucose 118 mg/dl (70-99); Lipase 98 U/L (73-393); Magnesium 2.2 mg/dl (1.8-2.4); Potassium 3.2 mmol/L (3.5-5.1); Sodium 140 mmol/L (136-145)
[2020-05-15 19:23] LABS: Albumin Globulin Ratio 0.6 (0.9-2); Alkaline Phosphatase 75 U/L (45-117); Bilirubin,Total 0.3 mg/dl (0.2-1); Globulin 5.1 gm/dl (2.5-4.0); NT Pro B Type Natriuretic Pept 24 pg/ml (0-450); Phosphorus 2.8 mg/dl (2.5-4.9); Troponin I < 0.015 ng/ml (0-0.045)
[2020-05-15 19:27] LABS: Pregnancy Test, Serum Negative (Negative)
[2020-05-15] MEDS ORDERED: POTASSIUM CHLORIDE CRTAB 20 MEQ TABCR PO STA (22:01)
--- NOTE | 2020-05-15 23:49 | History & Physical Report ---
Date of Service May 15, 2020 Assessment & Plan (1) Pneumonia due to COVID-19 virus: 44yo C female presenting with Covid-19 associated PNA. Patient was diagnosed with Covid-19 on 05/12, reports symptoms of cough and SOB have been progressively worsening. Hypoxic in the ER to 87% on room air. She is currently on 2L NC saturating 93%. Patient lives alone. She works at [employer] where there have recently been several cases of Covid-19 diagnoses. She denies close contact with any known Covid-19 positive person and was not personally informed of a positive contact through contact tracing. Risk factors for severe disease include obesity (BMI=49.2), HTN, HLP, Impaired fasting glucose. Patient also with Sjogren's syndrome on home Plaquenil 200mg po BID. -Admit to medical -Check inflammatory markers - ESR, CRP, Ferritin. Check CK total -Check Procalcitonin to assess for secondary bacterial infection as well -Continue supplemental O2 as needed, maintain saturation >92% -Dexamethasone 10mg IV given in ER - will continue 6mg IV daily -Will initiate Remdesivir therapy - discussed with Pulmonary team -Will initiate treatment with convalescent plasma. Consent obtained via telephone while in the ER -Pepcid 40 mg po daily -Zinc supplement 220 mg po daily -Guaifenasin 1200mg po BID and Tessalon as needed for cough -Albuterol HFA as needed for SOB. Will try to avoid nebulized therapies as this increases risk for aerosolization and virus transmission -Lovenox 40mg SQ q 12 hours for DVT prophylaxis Present on Admission?: Yes (2) Sjogrens syndrome: Patient with Sjogrens syndrome -Continue Plaquenil 200mg po BID Present on Admission?: Yes (3) Hyperlipidemia: Chronic. -Continue Simvastatin 10mg po qHS Present on Admission?: Yes (4) GERD (gastroesophageal reflux disease): Chronic. Patient currently not on medications -Will initiate Pepcid 40mg po daily as above. Some evidence suggests that treatment with Pepcid is associated with improved outcomes, less ventilator use and less inflammatory response Present on Admission?: Yes (5) Vitamin D deficiency: Chronic. -Continue Vitamin D supplement Present on Admission?: Yes (6) Obstructive sleep apnea: Chronic. Patient uses CPAP at home. Was recently evaluated by Dr. De La Paz for CPAP compliance - note states that she has been having some difficulty with CPAP compliance since her Covid-19 diagnosis -Encourage CPAP compliance qHS Present on Admission?: Yes (7) Impaired fasting glucose: Patient currently not on medication -ISS coverage F/E/N - Heplock. K repletion with, Mg and PO4 within normal range, PO as tolerated Ppx - Lovenox 40 BID Code - Full Dispo - Admit to medical, Covid-19 unit Present on Admission?: Yes History of Present Illness Chief Complaint: Cough, SOB, CAMPBELL Primary Care Provider: Rosita Grimes MD Cristal Osuna is a 44yo C female with history of Sjogren's syndrome, HTN, HLP, impaired fasting glucose and obesity presenting with Covid-19 PNA. Patient developed symptoms of fever/chills/cough/SOB on the evening of 05/11/20 then later developed watery diarrhea. She has been taking Tylenol OTC cough syrup as needed as well as cough lozenges dextromethorphan and Mucinex. She had testing for Covid-19 performed on 05/12/20 which was found to be positive. Patient's symptoms have been worsening. She has an ongoing cough as well as shortness of breath. She states that her ribs hurt but otherwise denies chest pain. No additional complaints at this time. ER Course: Tylenol 1gm, Albuterol 12mL neb, Dexamethasone 10mg IV, Benadryl 25mg IV, Guaifenesin 600mg PO, KCL 40mEqPO, NSS x 1L, NSS nasal Allergies Allergy/AdvReac Type Severity Reaction Status Date / Time Penicillins Allergy Mild Unknown Verified 05/15/20 22:18 citalopram AdvReac Unknown Anxiety Verified 05/15/20 22:18 Home Medications Home Medications Medication Instructions Recorded Confirmed Type hydroxychloroquine [Plaquenil] 200 mg PO BID 10/19/18 05/15/20 History furosemide 40 mg PO DAILY 11/27/18 05/15/20 History sennosides 8.6 mg-docusate sodium 2 tab PO QPM tab 05/06/19 05/15/20 History 50 mg tablet gabapentin 300 mg capsule 300 mg PO BID 01/11/20 05/15/20 History simvastatin 10 mg tablet 10 mg PO HS #90 tab 09/17/20 10/22/20 Rx doxycycline hyclate 100 mg capsule 100 mg PO BID #14 cap 05/12/20 05/15/20 Rx cholecalciferol (vitamin D3) 2,000 unit PO DAILY 05/15/20 05/15/20 History [Vitamin D3] Past Med/Surg History Medical History Bladder mass leiomyoma GERD (gastroesophageal reflux disease) Hyperlipidemia Impaired fasting glucose Obstructive sleep apnea Sjogrens syndrome with peripheral neuropathy and Raynaud's Small fiber neuropathy Vitamin D deficiency Surgical History H/O breast biopsy History of colonoscopy Family History Mother Ovarian cancer Grandmother (Paternal) Myocardial infarction Uncle Prostate cancer Colonic polyp Denies family history of Breast cancer Social History Smoking Status: Never smoker Second Hand Exposure: No; Hx Alcohol Use: Yes Alcohol type: other Hx Substance Use: No Preferred Language: Mauritanian Communication Ability: Effective Visual Impairment: No Limitations Hearing Ability: Normal Bander Required: No Beliefs That Will Affect Care: None marital status: Single Current Living Situation: Alone current occupational status: unemployed Feels Safe at Home: Yes Dental Care, Regularly: Yes Physical Activity Frequency: Daily Assistive Devices: Glasses Review of Systems Review of Systems: All systems reviewed & are unremarkable except as noted in HPI & below Physical Exam Physical Exam: General: patient resting comfortably, NAD, non-toxic in appearance, AA&O x 4, wearing a cloth face covering, on NC 2L Skin: warm, dry, intact, no rashes or lesions HEENT: NC/AT, PERRL, anicteric sclera, conjunctiva without injection, external ear normal to inspection and nontender, nares patent, moist mucus membranes, dentition intact, no oropharyngeal lesions, neck supple, trachea midline, no LAD, no thyromegaly, no JVD Heart: +S1/S2, regular, tachycardic, no m/r/g Lungs: equal air entry bilaterally, coarse breath sounds with end-expiratory wheezing Abd: +BS, soft, NT/ND, no masses/organomegaly/ascites Ext: warm, 2+ pulses in UE/LE bilaterally, no clubbing/cyanosis or edema Neuro: nonfocal, patient AA&O x 4, speech intact, no facial droop, moving all extremities on command with equal strength 5/5 Results & Data Results & Data ([facility]) Vital Signs (Past 12 Hours) Vital Signs Temp Pulse Pulse Resp BP Pulse Ox 05/15/20 21:54 87 L 05/15/20 21:37 97 H 22 97 05/15/20 21:30 36.6 C 97 H 22 163/88 H 97 05/15/20 21:20 92 H 22 97 05/15/20 21:10 90 26 H 97 05/15/20 21:00 91 H 21 144/75 H 98 05/15/20 20:30 81 23 140/80 98 05/15/20 20:10 85 16 92 05/15/20 20:00 85 23 134/83 91 05/15/20 19:30 84 27 H 136/85 92 05/15/20 19:20 85 26 H 91 05/15/20 19:13 86 22 142/89 H 93 05/15/20 17:08 37.1 C 105 H 22 157/84 H 94 Laboratory Results Lab Results 05/15/20 05/15/20 05/15/20 Range/Units 18:46 18:46 18:46 WBC 6.58 (4.8-10.8) K/uL RBC 4.55 (4.2-5.4) M/uL Hgb 12.3 (12.0-16.0) g/dL Hct 39.2 (37-47) % MCV 86.2 (80-100) fL MCH 27.0 (25-34) pg MCHC 31.4 L (32-36) g/dL RDW Std Deviation 50.5 H (36.4-46.3) fL RDW Coeff of Nahid 16.0 H (11.5-14.5) % Plt Count 261 (130-400) K/uL MPV 10.0 (7.4-10.4) fL Immature Gran % (Auto) 0.2 % Neut % (Auto) 60.8 % Lymph % (Auto) 32.4 % [place] % (Auto) 6.1 % Eos % (Auto) 0.2 % Baso % (Auto) 0.3 % Neut # (Auto) 4.01 (1.4-6.5) K/uL Lymph # (Auto) 2.13 (1.2-3.4) K/uL [place] # (Auto) 0.40 (0.11-0.59) K/uL Eos # (Auto) 0.01 (0-0.5) K/uL Baso # (Auto) 0.02 (0-0.2) K/uL Immature Gran # (Auto) 0.01 (0.00-0.02) K/uL PT 10.7 (9.0-12.0) Seconds INR 1.0 (0.9-1.1) APTT 29.5 (21.0-31.0) Seconds PTT Ratio 1.1 Sodium 140 (136-145) mmol/L Potassium 3.2 L (3.5-5.1) mmol/L Chloride 106 (98-107) mmol/L Carbon Dioxide 28 (21-32) mmol/L Anion Gap 6.0 (3-11) BUN 9 (7-18) mg/dl Creatinine 0.79 (0.6-1.2) mg/dl Est Cr Clr Drug Dosing 123.3 ml/min Est GFR ( Amer) 104.0 Est GFR (Non-Af Amer) 89.8 BUN/Creatinine Ratio 11.5 (10-20) Glucose 118 H (70-99) mg/dl Calcium 8.7 (8.5-10.1) mg/dl Phosphorus 2.8 (2.5-4.9) mg/dl Magnesium 2.2 (1.8-2.4) mg/dl Total Bilirubin 0.3 (0.2-1) mg/dl Direct Bilirubin < 0.1 (0-0.2) mg/dl AST 24 (15-37) U/L ALT 30 (12-78) U/L Alkaline Phosphatase 75 (45-117) U/L Troponin I < 0.015 (0-0.045) ng/ml NT-Pro-B Natriuret Pep 24 (0-450) pg/ml Total Protein 8.0 (6.4-8.2) gm/dl Albumin 2.9 L (3.4-5.0) gm/dl Globulin 5.1 H (2.5-4.0) gm/dl Albumin/Globulin Ratio 0.6 L (0.9-2) Lipase 98 (73-393) U/L HCG, Qual (Negative) 05/15/20 Range/Units 18:46 WBC (4.8-10.8) K/uL RBC (4.2-5.4) M/uL Hgb (12.0-16.0) g/dL Hct (37-47) % MCV (80-100) fL MCH (25-34) pg MCHC (32-36) g/dL RDW Std Deviation (36.4-46.3) fL RDW Coeff of Nahid (11.5-14.5) % Plt Count (130-400) K/uL MPV (7.4-10.4) fL Immature Gran % (Auto) % Neut % (Auto) % Lymph % (Auto) % [place] % (Auto) % Eos % (Auto) % Baso % (Auto) % Neut # (Auto) (1.4-6.5) K/uL Lymph # (Auto) (1.2-3.4) K/uL [place] # (Auto) (0.11-0.59) K/uL Eos # (Auto) (0-0.5) K/uL Baso # (Auto) (0-0.2) K/uL Immature Gran # (Auto) (0.00-0.02) K/uL PT (9.0-12.0) Seconds INR (0.9-1.1) APTT (21.0-31.0) Seconds PTT Ratio Sodium (136-145) mmol/L Potassium (3.5-5.1) mmol/L Chloride (98-107) mmol/L Carbon Dioxide (21-32) mmol/L Anion Gap (3-11) BUN (7-18) mg/dl Creatinine (0.6-1.2) mg/dl Est Cr Clr Drug Dosing ml/min Est GFR ( Amer) Est GFR (Non-Af Amer) BUN/Creatinine Ratio (10-20) Glucose (70-99) mg/dl Calcium (8.5-10.1) mg/dl Phosphorus (2.5-4.9) mg/dl Magnesium (1.8-2.4) mg/dl Total Bilirubin (0.2-1) mg/dl Direct Bilirubin (0-0.2) mg/dl AST (15-37) U/L ALT (12-78) U/L Alkaline Phosphatase (45-117) U/L Troponin I (0-0.045) ng/ml NT-Pro-B Natriuret Pep (0-450) pg/ml Total Protein (6.4-8.2) gm/dl Albumin (3.4-5.0) gm/dl Globulin (2.5-4.0) gm/dl Albumin/Globulin Ratio (0.9-2) Lipase (73-393) U/L HCG, Qual Negative (Negative) Diagnostic Findings XR chest 1V portable CLINICAL HISTORY: Atypical chest pain COMPARISON STUDY: 11/02/2018 FINDINGS: The heart is the upper limits of normal in size. There are bilateral interstitial opacities, edema versus infectious/inflammatory process. Clinical and radiographic follow-up is recommended. There are no significant pleural effusions.[ IMPRESSION: 1. Bilateral pulmonary interstitial opacities, edema versus an infectio us/inflammatory process. Clinical and radiographic follow-up recommended. ACT 112: Negative or not required by law. Electronically signed by: Rohit Fortune M.D. 05/15/2020 7:14 PM Dictated: 05/15/201912 Transcribed: 05/15/201912 ECG Additional Comments: EKG with NSR at 98, normal axis, UD=949, QRS=94, REm=475, no acute ischemic changes, occasional ectopic beat Code Status & VTE Plan Code Status Full Code VTE Prophylaxis Plan VTE Prophylaxis will be ordered: Yes PG Care Time/CCT Total # of Minutes Spent Total Time Spent with Patient: Total time spent is greater than 50% in coordination of care (as documented) at patient's floor/unit and/or counseling patient: Coding Level of Care Code 11373 Initial Inpt Care Lvl 3 Diagnoses Pneumonia due to COVID-19 virus U07.1; J12.89 Sjogrens syndrome M35.00 Sjogren's organ involvement: unspecified organ involvement Hyperlipidemia E78.5 Hyperlipidemia type: unspecified GERD (gastroesophageal reflux disease) K21.9 Esophagitis presence: esophagitis presence not specified Vitamin D deficiency E55.9 Obstructive sleep apnea G47.33 Impaired fasting glucose R73.01 (1) Sjogrens syndrome Sjogren's organ involvement: unspecified organ involvement Qualified Code(s): M35.00 - Sicca syndrome, unspecified (2) Hyperlipidemia Hyperlipidemia type: unspecified Qualified Code(s): E78.5 - Hyperlipidemia, unspecified (3) GERD (gastroesophageal reflux disease) Esophagitis presence: esophagitis presence not specified Qualified Code(s): K21.9 - Gastro-esophageal reflux disease without esophagitis
[2020-05-16] MEDS ORDERED: DOCUSATE SODIUM/SENNA 50/8.6MG TAB PO PRN (00:05)
[2020-05-16] MEDS ORDERED: GLUCOSE 40% GEL 15 GM TUBE PO PRN (00:05)
[2020-05-16] MEDS ORDERED: CARBOHYDRATES FOR HYPOGLYCEMIA PO PRN (00:05)
[2020-05-16] MEDS ORDERED: ACETAMINOPHEN 325 MG TAB PO PRN (00:05)
[2020-05-16] MEDS ORDERED: DEXTROSE 50% 50 ML SYRINGE IV PRN (00:05)
[2020-05-16] MEDS ORDERED: BENZONATATE 100 MG CAPSULE PO PRN (00:05)
[2020-05-16] MEDS ORDERED: ALBUTEROL HFA 8 GM INHALER INH PRN (00:05)
[2020-05-16] MEDS ORDERED: GLUCAGON FOR INJ 1 MG VIAL SQ PRN (00:05)
[2020-05-16] MEDS ORDERED: GLUCOSE 10 TABS/TUBE PO PRN (00:05)
[2020-05-16] MEDS ORDERED: REMDESIVIR 200 mg: Day 1 IV ONE (00:30)
[2020-05-16 00:35] LABS: C Reactive Protein 5.02 mg/dl (0-0.29); Creatine Kinase 347 U/L (26-192); Ferritin 65.5 ng/ml (8-388)
[2020-05-16] MEDS: ENOXAPARIN INJ 40 MG/0.4 ML SYR SQ SCH ×3 (02:14→19:38)
[2020-05-16] MEDS: GABAPENTIN 300 MG CAP PO SCH ×3 (02:15→19:39)
[2020-05-16] MEDS: NSS 30mL Flush, Days 1-5 IV SCH (04:59)
[2020-05-16 06:58] LABS: Basophils # (auto) 0.01 K/uL (0-0.2); Basophils % (auto) 0.2 %; Hematocrit (blood only) 36.8 % (37-47); Hemoglobin 11.5 g/dL (12.0-16.0); Immature Granulocytes # (auto) 0.01 K/uL (0.00-0.02); Immature Granulocytes % (auto) 0.2 %; Lymphocytes # (auto) 0.98 K/uL (1.2-3.4); Lymphocytes % (auto) 22.5 %; Mean Corpuscular Hemoglobin 27.3 pg (25-34); Mean Corpuscular Hgb Conc 31.3 g/dL (32-36); Mean Corpuscular Volume 87.2 fL (80-100); Mean Platelet Volume 10.2 fL (7.4-10.4); Monocytes # (auto) 0.12 K/uL (0.11-0.59); Monocytes % (auto) 2.8 %; Neutrophils # (auto) 3.23 K/uL (1.4-6.5); Neutrophils % (auto) 74.3 %; Platelet Count 280 K/uL (130-400); RDW Coefficient of Variation 16.3 % (11.5-14.5); RDW Standard Deviation 52.3 fL (36.4-46.3); Red Blood Count 4.22 M/uL (4.2-5.4); White Blood Count 4.35 K/uL (4.8-10.8)
[2020-05-16 07:06] LABS: D Dimer 660 ug/L FEU (0-500)
[2020-05-16 07:38] LABS: Alanine Aminotransferase 27 U/L (12-78); Albumin Level 2.7 gm/dl (3.4-5.0); Alkaline Phosphatase 70 U/L (45-117); Aspartate Aminotransferase 17 U/L (15-37); BUN Creatinine Ratio 11.9 (10-20); Bilirubin Direct < 0.1 mg/dl (0-0.2); Bilirubin,Total 0.2 mg/dl (0.2-1); Blood Urea Nitrogen 8 mg/dl (7-18); Calcium 8.2 mg/dl (8.5-10.1); Carbon Dioxide 28 mmol/L (21-32); Chloride 110 mmol/L (98-107); Creatinine Clr Calc Pharmacy 138.5 ml/min; Est GFR (African American) 118.4; Est GFR (Non-African American) 102.1; Glucose 187 mg/dl (70-99); Potassium 4.1 mmol/L (3.5-5.1); Sodium 141 mmol/L (136-145); Total Protein 7.4 gm/dl (6.4-8.2)
[2020-05-16] MEDS ORDERED: HYDROXYCHLOROQUINE SULFATE 200 MG TAB PO SCH (08:00)
--- NOTE | 2020-05-16 08:13 | Pulmonary Consultation ---
Date of Consultation May 16, 2020 Assessment & Plan (1) Pneumonia due to COVID-19 virus: Recommend continuing a 5-day course of remdesivir and checking LFTs. Continue Decadron 6 mg for 10 days or until she is discharged from the hospital. Convalescent plasma can be tried, but the patient refused. Obesity may likely complicate her hospitalization and her treatment. Weight loss is advised. CPAP should be continued when sleeping. Continue supplemental oxygen to maintain saturations of 92% or greater. Albuterol HFA can be used on a as needed basis. Continue high-dose VTE prophylaxis with Lovenox. Continue her statin. Pulmonary will follow from the periphery. Please call us with questions. Thank you. (2) Shortness of breath: (3) Cough: (4) Sjogrens syndrome: Sjogren's organ involvement: unspecified organ involvement Qualified Code(s): M35.00 - Sicca syndrome, unspecified History of Present Illness Reason for Consultation: Covid pneumonitis Requesting Physician: Hospitalist service Attending Physician: Maame Morelos MD History of Present Illness 44-year-old female with a past medical history of Sjogren's disease on Plaquenil, hypertension, hyperlipidemia and obesity with a BMI of 49.9 who presented to the hospital with Covid-like symptoms. She developed fevers chills and cough apparently on May 11 and then developed watery diarrhea. Her shortness of breath was worsening in her ribs began hurting. She came to the ER had received 10 mg of Decadron, Benadryl, guaifenesin, 1 L of saline and Tylenol. Admission was requested and pulmonary was consulted for remdesivir. She actually sees Dr. Jose F De La Paz in the clinic. Dr. De La Paz suggested that the patient go to the ER after a telephone note visit related to her obstructive s leep apnea. Laboratory data suggest leukopenia with anemia. Lymphocyte count is decreased at 980. D-dimer is elevated to 660. Renal function is stable at 0.71. COVID-19 PCR was positive on 05/12/2020. She received her first dose of remdesivir yesterday. She is on 40 mg p.o. daily Lasix. 40 mg twice daily of Lovenox was started. proBNP is 24. Procalcitonin is less than 0.05. Chest x- ray demonstrated bilateral pulmonary interstitial opacities. The patient apparently refused convalescent plasma. Notably, I did not physically see the patient aside for looking at her through the doorway due to the ID- pandemic. I am deferring to the hospitalist for their physical exam. The patient did tell me that she had a good night sleep and she is feeling better today. She does not appear to be in any distress. She is not currently on supplemental oxygen as she had just removed the CPAP from her face. Allergies Allergy/AdvReac Type Severity Reaction Status Date / Time Penicillins Allergy Mild Unknown Verified 05/15/20 22:18 citalopram AdvReac Unknown Anxiety Verified 05/15/20 22:18 Home Medications Home Medications Medication Instructions Recorded Confirmed Type hydroxychloroquine [Plaquenil] 200 mg PO BID 10/19/18 05/15/20 History furosemide 40 mg PO DAILY 11/27/18 05/15/20 History sennosides 8.6 mg-docusate sodium 2 tab PO QPM tab 05/06/19 05/15/20 History 50 mg tablet gabapentin 300 mg capsule 300 mg PO BID 01/11/20 05/15/20 History simvastatin 10 mg tablet 10 mg PO HS #90 tab 04/10/20 05/15/20 Rx doxycycline hyclate 100 mg capsule 100 mg PO BID #14 cap 05/12/20 05/15/20 Rx cholecalciferol (vitamin D3) 2,000 unit PO DAILY 05/15/20 05/15/20 History [Vitamin D3] Patient History Medical History Bladder mass leiomyoma GERD (gastroesophageal reflux disease) Hyperlipidemia Impaired fasting glucose Obstructive sleep apnea Sjogrens syndrome with peripheral neuropathy and Raynaud's Small fiber neuropathy Vitamin D deficiency Surgical History H/O breast biopsy History of colonoscopy Family History Mother Ovarian cancer Grandmother (Paternal) Myocardial infarction Uncle Prostate cancer Colonic polyp Denies family history of Breast cancer Social History Smoking Status: Never smoker Second Hand Exposure: No; Hx Alcohol Use: No Hx Substance Use: No Preferred Language: Romansh Communication Ability: Effective Visual Impairment: No Limitations Hearing Ability: Normal Hogshead Mat Inspector Required: No Beliefs That Will Affect Care: None marital status: Single Current Living Situation: Alone current occupational status: unemployed Feels Safe at Home: Yes Dental Care, Regularly: Yes Physical Activity Frequency: Daily Assistive Devices: CPAP and Glasses Review of Systems Review of Systems: Deferred due to the COVID- pandemic. Please refer to the hospitalist review of systems. Physical Exam Physical Exam: Deferred due to the COVID- pandemic. Please refer to the hospitalist review of systems and physical exam. She does not look like she is in any distress currently. Results & Data Results & Data ([facility]) Vital Signs (Past 12 Hours) Vital Signs Temp Pulse Pulse Resp BP BP Pulse Ox 05/16/20 03:46 74 14 96 05/16/20 01:34 81 20 94 05/16/20 00:07 98.2 F 102 H 20 142/85 H 93 05/15/20 23:30 101 H 25 H 133/75 92 05/15/20 23:20 106 H 26 H 93 05/15/20 23:10 106 H 32 H 93 05/15/20 23:00 105 H 26 H 91 05/15/20 22:50 103 H 23 93 05/15/20 22:40 108 H 31 H 92 05/15/20 22:31 108 H 33 H 135/70 92 05/15/20 22:30 108 H 27 H 92 05/15/20 22:20 110 H 27 H 92 05/15/20 22:10 107 H 27 H 92 05/15/20 22:00 107 H 19 138/76 91 05/15/20 21:54 87 L 05/15/20 21:50 102 H 20 89 L 05/15/20 21:40 106 H 26 H 89 L 05/15/20 21:37 97 H 22 97 05/15/20 21:30 97.9 F 97 H 22 163/88 H 97 05/15/20 21:20 92 H 22 97 05/15/20 21:10 90 26 H 97 05/15/20 21:00 91 H 21 144/75 H 98 05/15/20 20:30 81 23 140/80 98 I reviewed the vital signs, labs and imaging PG Care Time/CCT Total # of Minutes Spent Total Time Spent with Patient: Total time spent is greater than 50% in coordination of care (as documented) at patient's floor/unit and/or counseling patient: Coding Level of Care Code 59175 Inpt Consult Level 3 Diagnoses Pneumonia due to COVID-19 virus U07.1; J12.89 Shortness of breath R06.02 Cough R05 Sjogrens syndrome M35.00 Sjogren's organ involvement: unspecified organ involvement Time Spent (min) 46
--- NOTE | 2020-05-16 08:33 | Electrocardiogram Report ---
Test Reason : Blood Pressure : / mmHG Vent. Rate : 098 BPM Atrial Rate : 098 BPM P-R Int : 144 ms QRS Dur : 094 ms QT Int : 334 ms P-R-T Axes : 061 037 028 degrees QTc Int : 426 ms Sinus rhythm with Premature supraventricular complexes Otherwise normal ECG No previous ECGs available Confirmed by Roberto Burgess ([id number]) on 05/16/2020 8:33:30 AM Referred By: REFERRED SELF Confirmed By:Roberto Burgess
[2020-05-16] MEDS: CHOLECALCIFEROL 1,000 UNITS 25 MCG TAB PO SCH (08:59)
[2020-05-16] MEDS: FAMOTIDINE 40 MG TABLET PO SCH (08:59)
[2020-05-16] MEDS: FUROSEMIDE 40 MG TAB PO SCH (09:00)
[2020-05-16] MEDS: guaiFENesin 600 MG TABCR PO SCH ×2 (09:00→19:38)
[2020-05-16] MEDS ORDERED: DEXAMETHASONE SOD INJ 10 MG/ML VIAL IV SCH (09:00)
[2020-05-16] MEDS: ZINC SULFATE 220 MG CAPSULE PO SCH (09:01)
[2020-05-16] MEDS: INSULIN ASPART 100 UNITS/ML 3 ML PEN SC SCH ×4 (09:09→20:43)
[2020-05-16] MEDS: dexAMETHasone 6 MG in SYRINGE 0 ML IV SCH (10:23)
--- NOTE | 2020-05-16 18:37 | Hospitalist Progress Note ---
Date of Service May 16, 2020 Assessment & Plan (1) Pneumonia due to COVID-19 virus: This patient is a 44yo C female presenting with Covid-19 associated PNA. Patient was diagnosed with Covid-19 on 05/12, reports symptoms of cough and SOB have been progressively worsening. Hypoxic in the ER to 87% on room air. Patient lives alone. 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 She denies close contact with any known Covid-19 positive person and was not personally informed of a positive contact through contact tracing. Risk factors for severe disease include obesity (BMI=49.2), HTN, HLP, Impaired fasting glucose. Patient also with Sjogren's syndrome on home Plaquenil 200mg po BID. Somewhat improved today but remains in oxygen Markers of inflammation are elevated, procalcitonin is negative Do not suspect secondary bacterial pneumonia Remains on 1 to 2 L nasal cannula -Continue supplemental O2 as needed, maintain saturation >92% -Dexamethasone 10mg IV given in ER - will continue 6mg IV daily x10-day course -Continue remdesivir therapy x5-day course- discussed with Pulmonary team upon admission -Patient declined convalescent plasma -Continue Pepcid 40 mg po daily -Continue continue zinc supplement 220 mg po daily -Guaifenasin 1200mg po BID and Tessalon as needed for cough -Continue albuterol HFA as needed for SOB. -Lovenox 40mg SQ q 12 hours for DVT prophylaxis -Follow daily labs (2) Sjogrens syndrome: Patient with Sjogrens syndrome -Hold Plaquenil 200mg po BID while on Remdesivir due to interaction (3) Hyperlipidemia: Chronic. -Continue Simvastatin 10mg po qHS (4) GERD (gastroesophageal reflux disease): Chronic. Patient currently not on medications -Will initiate Pepcid 40mg po daily as above while on corticosteroid therapy. Some evidence suggests that treatment with Pepcid is associated with improved outcomes, less ventilator use and less inflammatory response (5) Vitamin D deficiency: Chronic. -Continue Vitamin D supplement (6) Obstructive sleep apnea: Chronic. Patient uses CPAP at home. Was recently evaluated by Dr. De La Paz for CPAP compliance - note states that she has been having some difficulty with CPAP compliance since her Covid-19 diagnosis -Encourage CPAP compliance qHS (7) Small fiber neuropathy: Secondary to Sjogren's syndrome -Continue gabapentin (8) Impaired fasting glucose: Hemoglobin A1c 6.5% in 12/2019, patient currently not on medication at home -ISS coverage here especially in the setting of IV dexamethasone With hyperglycemia in the 200s -Tighten down NovoLog coverage and add Lantus (9) DVT prophylaxis: Lovenox 40 BID Code - Full Dispo -continued stay on medical/surgical room on Covid precautions Admission and Anticipated Discharge Date Admission Date: May 15, 2020 Subjective Patient reports feeling a little bit better today. Still coughing but nonproductive. Walked the halls without oxygen and felt a little bit short of breath. Denies nausea or vomiting, no further diarrhea. She has some return of her appetite today. Review of Systems Review of Systems: All systems reviewed & are unremarkable except as noted in HPI & below Physical Exam Constitutional: WD/WN, vitals as above + obese Eyes: + anicteric sclerae Neck: trachea midline, no thyromegaly Respiratory: normal respiratory effort, lungs clear to auscultation Auscultation: + diminished lung sounds (Throughout) Cardiovascular: RRR, no murmur, no edema Chest (Breasts): Chest: normal inspection of chest Gastrointestinal (Abdomen): normal bowel sounds, soft, nontender, no hepatosplenomegaly Musculoskeletal: Extremities: extremities normal to inspection; no cyanosis and no clubbing Skin: no rashes, warm and dry Neurologic: moves all extremities and awake; no focal motor deficits Psychiatric: A+Ox3, euthymic affect Lymphatic: no lymphedema Results & Data Results & Data ([facility]) Vital Signs (Past 12 Hours) Vital Signs Temp Pulse Resp BP Pulse Ox 05/16/20 16:01 37.0 C 88 20 127/81 90 05/16/20 13:09 94 05/16/20 10:45 92 05/16/20 08:50 36.8 C 81 24 112/69 90 05/16/20 08:35 88 L Laboratory Results 05/16/20 05/16/20 05/16/20 Range/Units 20:17 16:34 12:24 WBC (4.8-10.8) K/uL RBC (4.2-5.4) M/uL Hgb (12.0-16.0) g/dL Hct (37-47) % MCV (80-100) fL MCH (25-34) pg MCHC (32-36) g/dL RDW Std Deviation (36.4-46.3) fL RDW Coeff of Nahid (11.5-14.5) % Plt Count (130-400) K/uL MPV (7.4-10.4) fL Immature Gran % (Auto) % Neut % (Auto) % Lymph % (Auto) % [place] % (Auto) % Eos % (Auto) % Baso % (Auto) % Neut # (Auto) (1.4-6.5) K/uL Lymph # (Auto) (1.2-3.4) K/uL [place] # (Auto) (0.11-0.59) K/uL Eos # (Auto) (0-0.5) K/uL Baso # (Auto) (0-0.2) K/uL Immature Gran # (Auto) (0.00-0.02) K/uL ESR (0-21) mm/hr D-Dimer (0-500) ug/L FEU Sodium (136-145) mmol/L Potassium (3.5-5.1) mmol/L Chloride (98-107) mmol/L Carbon Dioxide (21-32) mmol/L Anion Gap (3-11) BUN (7-18) mg/dl Creatinine (0.6-1.2) mg/dl Est Cr Clr Drug Dosing ml/min Est GFR ( Amer) Est GFR (Non-Af Amer) BUN/Creatinine Ratio (10-20) Glucose (70-99) mg/dl POC Glucose 217 H 179 H 120 H (70-99) mg/dl Calcium (8.5-10.1) mg/dl Ferritin (8-388) ng/ml Total Bilirubin (0.2-1) mg/dl Direct Bilirubin (0-0.2) mg/dl AST (15-37) U/L ALT (12-78) U/L Alkaline Phosphatase (45-117) U/L Total Creatine Kinase (26-192) U/L C-Reactive Protein (0-0.29) mg/dl Total Protein (6.4-8.2) gm/dl Albumin (3.4-5.0) gm/dl Procalcitonin (0-0.5) ng/ml 05/16/20 05/16/20 05/16/20 Range/Units 07:51 05:36 05:36 WBC 4.35 L (4.8-10.8) K/uL RBC 4.22 (4.2-5.4) M/uL Hgb 11.5 L (12.0-16.0) g/dL Hct 36.8 L (37-47) % MCV 87.2 (80-100) fL MCH 27.3 (25-34) pg MCHC 31.3 L (32-36) g/dL RDW Std Deviation 52.3 H (36.4-46.3) fL RDW Coeff of Nahid 16.3 H (11.5-14.5) % Plt Count 280 (130-400) K/uL MPV 10.2 (7.4-10.4) fL Immature Gran % (Auto) 0.2 % Neut % (Auto) 74.3 % Lymph % (Auto) 22.5 % [place] % (Auto) 2.8 % Eos % (Auto) 0.0 % Baso % (Auto) 0.2 % Neut # (Auto) 3.23 (1.4-6.5) K/uL Lymph # (Auto) 0.98 L (1.2-3.4) K/uL [place] # (Auto) 0.12 (0.11-0.59) K/uL Eos # (Auto) 0.00 (0-0.5) K/uL Baso # (Auto) 0.01 (0-0.2) K/uL Immature Gran # (Auto) 0.01 (0.00-0.02) K/uL ESR (0-21) mm/hr D-Dimer (0-500) ug/L FEU Sodium 141 (136-145) mmol/L Potassium 4.1 D (3.5-5.1) mmol/L Chloride 110 H (98-107) mmol/L Carbon Dioxide 28 (21-32) mmol/L Anion Gap 3.0 (3-11) BUN 8 (7-18) mg/dl Creatinine 0.71 (0.6-1.2) mg/dl Est Cr Clr Drug Dosing 138.5 ml/min Est GFR ( Amer) 118.4 Est GFR (Non-Af Amer) 102.1 BUN/Creatinine Ratio 11.9 (10-20) Glucose 187 H (70-99) mg/dl POC Glucose 154 H (70-99) mg/dl Calcium 8.2 L (8.5-10.1) mg/dl Ferritin (8-388) ng/ml Total Bilirubin 0.2 (0.2-1) mg/dl Direct Bilirubin < 0.1 (0-0.2) mg/dl AST 17 (15-37) U/L ALT 27 (12-78) U/L Alkaline Phosphatase 70 (45-117) U/L Total Creatine Kinase (26-192) U/L C-Reactive Protein (0-0.29) mg/dl Total Protein 7.4 (6.4-8.2) gm/dl Albumin 2.7 L (3.4-5.0) gm/dl Procalcitonin (0-0.5) ng/ml 05/16/20 05/15/20 05/15/20 Range/Units 05:36 18:46 18:46 WBC (4.8-10.8) K/uL RBC (4.2-5.4) M/uL Hgb (12.0-16.0) g/dL Hct (37-47) % MCV (80-100) fL MCH (25-34) pg MCHC (32-36) g/dL RDW Std Deviation (36.4-46.3) fL RDW Coeff of Nahid (11.5-14.5) % Plt Count (130-400) K/uL MPV (7.4-10.4) fL Immature Gran % (Auto) % Neut % (Auto) % Lymph % (Auto) % [place] % (Auto) % Eos % (Auto) % Baso % (Auto) % Neut # (Auto) (1.4-6.5) K/uL Lymph # (Auto) (1.2-3.4) K/uL [place] # (Auto) (0.11-0.59) K/uL Eos # (Auto) (0-0.5) K/uL Baso # (Auto) (0-0.2) K/uL Immature Gran # (Auto) (0.00-0.02) K/uL ESR 85 H (0-21) mm/hr D-Dimer 660 H* (0-500) ug/L FEU Sodium (136-145) mmol/L Potassium (3.5-5.1) mmol/L Chloride (98-107) mmol/L Carbon Dioxide (21-32) mmol/L Anion Gap (3-11) BUN (7-18) mg/dl Creatinine (0.6-1.2) mg/dl Est Cr Clr Drug Dosing ml/min Est GFR ( Amer) Est GFR (Non-Af Amer) BUN/Creatinine Ratio (10-20) Glucose (70-99) mg/dl POC Glucose (70-99) mg/dl Calcium (8.5-10.1) mg/dl Ferritin (8-388) ng/ml Total Bilirubin (0.2-1) mg/dl Direct Bilirubin (0-0.2) mg/dl AST (15-37) U/L ALT (12-78) U/L Alkaline Phosphatase (45-117) U/L Total Creatine Kinase (26-192) U/L C-Reactive Protein (0-0.29) mg/dl Total Protein (6.4-8.2) gm/dl Albumin (3.4-5.0) gm/dl Procalcitonin < 0.05 (0-0.5) ng/ml 05/15/20 Range/Units 18:46 WBC (4.8-10.8) K/uL RBC (4.2-5.4) M/uL Hgb (12.0-16.0) g/dL Hct (37-47) % MCV (80-100) fL MCH (25-34) pg MCHC (32-36) g/dL RDW Std Deviation (36.4-46.3) fL RDW Coeff of Nahid (11.5-14.5) % Plt Count (130-400) K/uL MPV (7.4-10.4) fL Immature Gran % (Auto) % Neut % (Auto) % Lymph % (Auto) % [place] % (Auto) % Eos % (Auto) % Baso % (Auto) % Neut # (Auto) (1.4-6.5) K/uL Lymph # (Auto) (1.2-3.4) K/uL [place] # (Auto) (0.11-0.59) K/uL Eos # (Auto) (0-0.5) K/uL Baso # (Auto) (0-0.2) K/uL Immature Gran # (Auto) (0.00-0.02) K/uL ESR (0-21) mm/hr D-Dimer (0-500) ug/L FEU Sodium (136-145) mmol/L Potassium (3.5-5.1) mmol/L Chloride (98-107) mmol/L Carbon Dioxide (21-32) mmol/L Anion Gap (3-11) BUN (7-18) mg/dl Creatinine (0.6-1.2) mg/dl Est Cr Clr Drug Dosing ml/min Est GFR ( Amer) Est GFR (Non-Af Amer) BUN/Creatinine Ratio (10-20) Glucose (70-99) mg/dl POC Glucose (70-99) mg/dl Calcium (8.5-10.1) mg/dl Ferritin 65.5 (8-388) ng/ml Total Bilirubin (0.2-1) mg/dl Direct Bilirubin (0-0.2) mg/dl AST (15-37) U/L ALT (12-78) U/L Alkaline Phosphatase (45-117) U/L Total Creatine Kinase 347 H (26-192) U/L C-Reactive Protein 5.02 H (0-0.29) mg/dl Total Protein (6.4-8.2) gm/dl Albumin (3.4-5.0) gm/dl Procalcitonin (0-0.5) ng/ml PG Care Time/CCT Total # of Minutes Spent Total Time Spent with Patient: Total time spent is greater than 50% in coordination of care (as documented) at patient's floor/unit and/or counseling patient: Coding Level of Care Code 76799 Subseq Hosp Care Lvl 3 Diagnoses Pneumonia due to COVID-19 virus U07.1; J12.89 Sjogrens syndrome M35.00 Sjogren's organ involvement: unspecified organ involvement Hyperlipidemia E78.5 Hyperlipidemia type: unspecified GERD (gastroesophageal reflux disease) K21.9 Esophagitis presence: esophagitis presence not specified Vitamin D deficiency E55.9 Obstructive sleep apnea G47.33 Small fiber neuropathy G62.9 Impaired fasting glucose R73.01 DVT prophylaxis Z29.9 (1) Sjogrens syndrome Sjogren's organ involvement: unspecified organ involvement Qualified Code(s): M35.00 - Sicca syndrome, unspecified (2) Hyperlipidemia Hyperlipidemia type: unspecified Qualified Code(s): E78.5 - Hyperlipidemia, unspecified (3) GERD (gastroesophageal reflux disease) Esophagitis presence: esophagitis presence not specified Qualified Code(s): K21.9 - Gastro-esophageal reflux disease without esophagitis
[2020-05-16] MEDS: SIMVASTATIN 10 MG TAB PO SCH (19:39)
[2020-05-16] MEDS: INSULIN GLARGINE SOLOSTAR 100 UNITS/ML 3 ML PEN SC SCH (22:00)
[2020-05-17] MEDS: NSS 30mL Flush, Days 1-5 IV SCH (02:21)
[2020-05-17 07:48] LABS: Basophils # (auto) 0.01 K/uL (0-0.2); Basophils % (auto) 0.2 %; Hematocrit (blood only) 37.1 % (37-47); Hemoglobin 11.5 g/dL (12.0-16.0); Immature Granulocytes # (auto) 0.01 K/uL (0.00-0.02); Immature Granulocytes % (auto) 0.2 %; Lymphocytes # (auto) 2.37 K/uL (1.2-3.4); Lymphocytes % (auto) 40.2 %; Mean Corpuscular Hemoglobin 27.1 pg (25-34); Mean Corpuscular Volume 87.5 fL (80-100); Mean Platelet Volume 10.2 fL (7.4-10.4); Monocytes # (auto) 0.43 K/uL (0.11-0.59); Monocytes % (auto) 7.3 %; Neutrophils # (auto) 3.07 K/uL (1.4-6.5); Neutrophils % (auto) 52.1 %; Platelet Count 327 K/uL (130-400); RDW Coefficient of Variation 16.4 % (11.5-14.5); RDW Standard Deviation 53.3 fL (36.4-46.3); Red Blood Count 4.24 M/uL (4.2-5.4); White Blood Count 5.89 K/uL (4.8-10.8)
[2020-05-17 08:13] LABS: Albumin Level 2.8 gm/dl (3.4-5.0); BUN Creatinine Ratio 14.9 (10-20); C Reactive Protein 2.03 mg/dl (0-0.29); Calcium 8.6 mg/dl (8.5-10.1); Creatinine Clr Calc Pharmacy 111.8 ml/min; Est GFR (African American) 91.3; Est GFR (Non-African American) 78.8; Magnesium 2.4 mg/dl (1.8-2.4); Potassium 3.5 mmol/L (3.5-5.1)
[2020-05-17 08:18] LABS: Albumin Globulin Ratio 0.6 (0.9-2); Bilirubin,Total 0.3 mg/dl (0.2-1); Ferritin 56.6 ng/ml (8-388); Globulin 4.6 gm/dl (2.5-4.0); Total Protein 7.4 gm/dl (6.4-8.2)
[2020-05-17 08:56] LABS: D Dimer 620 ug/L FEU (0-500)
[2020-05-17] MEDS: INSULIN ASPART 100 UNITS/ML 3 ML PEN SC SCH ×4 (09:13→20:32)
[2020-05-17] MEDS: dexAMETHasone 6 MG in SYRINGE 0 ML IV SCH (09:14)
[2020-05-17] MEDS: guaiFENesin 600 MG TABCR PO SCH ×2 (09:14→20:25)
[2020-05-17] MEDS: ZINC SULFATE 220 MG CAPSULE PO SCH (09:15)
[2020-05-17] MEDS: FUROSEMIDE 40 MG TAB PO SCH (09:15)
[2020-05-17] MEDS: ENOXAPARIN INJ 40 MG/0.4 ML SYR SQ SCH ×2 (09:15→20:24)
[2020-05-17] MEDS: CHOLECALCIFEROL 1,000 UNITS 25 MCG TAB PO SCH (09:16)
[2020-05-17] MEDS: GABAPENTIN 300 MG CAP PO SCH ×2 (09:16→20:25)
[2020-05-17] MEDS: FAMOTIDINE 40 MG TABLET PO SCH (09:16)
--- NOTE | 2020-05-17 17:11 | Hospitalist Progress Note ---
Date of Service May 17, 2020 Assessment & Plan (1) Pneumonia due to COVID-19 virus: This patient is a 44yo C female presenting with Covid-19 associated PNA. Patient was diagnosed with Covid-19 on 05/12, reports symptoms of cough and SOB have been progressively worsening. Hypoxic in the ER to 87% on room air. Patient lives alone. 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 She denies close contact with any known Covid-19 positive person and was not personally informed of a positive contact through contact tracing. Risk factors for severe disease include obesity (BMI=49.2), HTN, HLP, Impaired fasting glucose. Patient also with Sjogren's syndrome on home Plaquenil 200mg po BID. Is now markedly improved and weaned off oxygen Markers of inflammation are elevated but are coming down, procalcitonin is negat be Do not suspect secondary bacterial pneumonia -Continue supplemental O2 as needed, maintain saturation >92% -Will check 2 step walk test prior to discharge to ensure she does not need oxygen at home -Dexamethasone 10mg IV given in ER -have continued 6mg IV daily x10-day course and will convert to p.o. upon discharge -Continue remdesivir therapy x5-day course- discussed with Pulmonary team upon admission. I believe that she is doing well enough that she does not need to complete the 5-day course if she is otherwise ready for discharge to home tomorrow -Patient declined convalescent plasma -Continue Pepcid 40 mg po daily -Continue continue zinc supplement 220 mg po daily -Guaifenasin 1200mg po BID and Tessalon as needed for cough -Continue albuterol HFA as needed for SOB. -Lovenox 40mg SQ q 12 hours for DVT prophylaxis -Follow daily labs (2) Sjogrens syndrome: Patient with Sjogrens syndrome -Hold Plaquenil 200mg po BID while on Remdesivir due to interaction (3) Hyperlipidemia: Chronic. -Continue Simvastatin 10mg po qHS (4) GERD (gastroesophageal reflux disease): Chronic. Patient currently not on medications -Will initiate Pepcid 40mg po daily as above while on corticosteroid therapy. Some evidence suggests that treatment with Pepcid is associated with improved outcomes, less ventilator use and less inflammatory response (5) Vitamin D deficiency: Chronic. -Continue Vitamin D supplement (6) Obstructive sleep apnea: Chronic. Patient uses CPAP at home. Was recently evaluated by Dr. De La Paz for CPAP compliance - note states that she has been having some difficulty with CPAP compliance since her Covid-19 diagnosis -Encourage CPAP compliance qHS (7) Small fiber neuropathy: Secondary to Sjogren's syndrome -Continue gabapentin (8) Impaired fasting glucose: Hemoglobin A1c 6.5% in 12/2019, patient currently not on medication at home -ISS coverage here especially in the setting of IV dexamethasone With hyperglycemia in the 200s now improved with adding insulin -Continue NovoLog coverage and Lantus while in the hospital but will not need this upon discharge (9) Hypoxia: With acute respiratory failure with hypoxia secondary to COVID-19 pneumonia Much improved and weaned off O2 as above (10) Chronic diastolic CHF (congestive heart failure): Patient follows with a warehouse incentive selector and has a diagnosis of chronic EF preserved heart failure Continue home Lasix 40 mg daily No acute concerns (11) DVT prophylaxis: Lovenox 40 BID Code - Full Dispo -continued stay on medical/surgical room on Covid precautions, however she will likely be ready for discharge to home tomorrow Admission and Anticipated Discharge Date Admission Date: May 15, 2020 Subjective Patient feeling much better today. She is weaned off oxygen at rest. She also ambulated the hallways today and did not feel short of breath with this. She still feels like she has mucus down in her lungs that she cannot cough out and is taking guaifenesin. Denies chest pains. No nausea or vomiting. Otherwise is anxious to go home hopefully tomorrow. Review of Systems Review of Systems: All systems reviewed & are unremarkable except as noted in HPI & below Physical Exam Constitutional: WD/WN, vitals as above + obese Eyes: + anicteric sclerae Neck: trachea midline, no thyromegaly Respiratory: normal respiratory effort, lungs clear to auscultation Cardiovascular: RRR, no murmur, no edema Chest (Breasts): Chest: normal inspection of chest Gastrointestinal (Abdomen): normal bowel sounds, soft, nontender, no hepatosplenomegaly Musculoskeletal: Extremities: extremities normal to inspection; no cyanosis and no clubbing Skin: no rashes, warm and dry Neurologic: moves all extremities and awake; no focal motor deficits Psychiatric: A+Ox3, euthymic affect Lymphatic: no lymphedema Results & Data Results & Data ([facility]) Vital Signs (Past 12 Hours) Vital Signs Temp Pulse Resp BP Pulse Ox 05/17/20 16:02 36.8 C 79 20 125/78 91 05/17/20 11:41 36.8 C 74 18 113/76 92 05/17/20 08:16 36.7 C 87 24 135/79 94 Laboratory Results 05/17/20 05/17/20 05/17/20 Range/Units 20:30 17:01 11:38 WBC (4.8-10.8) K/uL RBC (4.2-5.4) M/uL Hgb (12.0-16.0) g/dL Hct (37-47) % MCV (80-100) fL MCH (25-34) pg MCHC (32-36) g/dL RDW Std Deviation (36.4-46.3) fL RDW Coeff of Nahid (11.5-14.5) % Plt Count (130-400) K/uL MPV (7.4-10.4) fL Immature Gran % (Auto) % Neut % (Auto) % Lymph % (Auto) % [place] % (Auto) % Eos % (Auto) % Baso % (Auto) % Neut # (Auto) (1.4-6.5) K/uL Lymph # (Auto) (1.2-3.4) K/uL [place] # (Auto) (0.11-0.59) K/uL Eos # (Auto) (0-0.5) K/uL Baso # (Auto) (0-0.2) K/uL Immature Gran # (Auto) (0.00-0.02) K/uL ESR (0-21) mm/hr D-Dimer (0-500) ug/L FEU Sodium (136-145) mmol/L Potassium (3.5-5.1) mmol/L Chloride (98-107) mmol/L Carbon Dioxide (21-32) mmol/L Anion Gap (3-11) BUN (7-18) mg/dl Creatinine (0.6-1.2) mg/dl Est Cr Clr Drug Dosing ml/min Est GFR ( Amer) Est GFR (Non-Af Amer) BUN/Creatinine Ratio (10-20) Glucose (70-99) mg/dl POC Glucose 148 H 142 H 128 H (70-99) mg/dl Calcium (8.5-10.1) mg/dl Magnesium (1.8-2.4) mg/dl Ferritin (8-388) ng/ml Total Bilirubin (0.2-1) mg/dl AST (15-37) U/L ALT (12-78) U/L Alkaline Phosphatase (45-117) U/L Lactate Dehydrogenase (84-246) U/L C-Reactive Protein (0-0.29) mg/dl Total Protein (6.4-8.2) gm/dl Albumin (3.4-5.0) gm/dl Globulin (2.5-4.0) gm/dl Albumin/Globulin Ratio (0.9-2) 05/17/20 05/17/20 05/17/20 Range/Units 07:47 07:13 07:13 WBC (4.8-10.8) K/uL RBC (4.2-5.4) M/uL Hgb (12.0-16.0) g/dL Hct (37-47) % MCV (80-100) fL MCH (25-34) pg MCHC (32-36) g/dL RDW Std Deviation (36.4-46.3) fL RDW Coeff of Nahid (11.5-14.5) % Plt Count (130-400) K/uL MPV (7.4-10.4) fL Immature Gran % (Auto) % Neut % (Auto) % Lymph % (Auto) % [place] % (Auto) % Eos % (Auto) % Baso % (Auto) % Neut # (Auto) (1.4-6.5) K/uL Lymph # (Auto) (1.2-3.4) K/uL [place] # (Auto) (0.11-0.59) K/uL Eos # (Auto) (0-0.5) K/uL Baso # (Auto) (0-0.2) K/uL Immature Gran # (Auto) (0.00-0.02) K/uL ESR (0-21) mm/hr D-Dimer (0-500) ug/L FEU Sodium 142 (136-145) mmol/L Potassium 3.5 (3.5-5.1) mmol/L Chloride 109 H (98-107) mmol/L Carbon Dioxide 28 (21-32) mmol/L Anion Gap 5.0 (3-11) BUN 13 D (7-18) mg/dl Creatinine 0.88 (0.6-1.2) mg/dl Est Cr Clr Drug Dosing 111.8 ml/min Est GFR ( Amer) 91.3 Est GFR (Non-Af Amer) 78.8 BUN/Creatinine Ratio 14.9 (10-20) Glucose 117 H (70-99) mg/dl POC Glucose 118 H (70-99) mg/dl Calcium 8.6 (8.5-10.1) mg/dl Magnesium 2.4 (1.8-2.4) mg/dl Ferritin 56.6 (8-388) ng/ml Total Bilirubin 0.3 (0.2-1) mg/dl AST 14 L (15-37) U/L ALT 26 (12-78) U/L Alkaline Phosphatase 62 (45-117) U/L Lactate Dehydrogenase 246 (84-246) U/L C-Reactive Protein 2.03 H (0-0.29) mg/dl Total Protein 7.4 (6.4-8.2) gm/dl Albumin 2.8 L (3.4-5.0) gm/dl Globulin 4.6 H (2.5-4.0) gm/dl Albumin/Globulin Ratio 0.6 L (0.9-2) 05/17/20 05/17/20 05/17/20 Range/Units 07:13 07:13 07:13 WBC 5.89 (4.8-10.8) K/uL RBC 4.24 (4.2-5.4) M/uL Hgb 11.5 L (12.0-16.0) g/dL Hct 37.1 (37-47) % MCV 87.5 (80-100) fL MCH 27.1 (25-34) pg MCHC 31.0 L (32-36) g/dL RDW Std Deviation 53.3 H (36.4-46.3) fL RDW Coeff of Nahid 16.4 H (11.5-14.5) % Plt Count 327 (130-400) K/uL MPV 10.2 (7.4-10.4) fL Immature Gran % (Auto) 0.2 % Neut % (Auto) 52.1 % Lymph % (Auto) 40.2 % [place] % (Auto) 7.3 % Eos % (Auto) 0.0 % Baso % (Auto) 0.2 % Neut # (Auto) 3.07 (1.4-6.5) K/uL Lymph # (Auto) 2.37 (1.2-3.4) K/uL [place] # (Auto) 0.43 (0.11-0.59) K/uL Eos # (Auto) 0.00 (0-0.5) K/uL Baso # (Auto) 0.01 (0-0.2) K/uL Immature Gran # (Auto) 0.01 (0.00-0.02) K/uL ESR 72 H (0-21) mm/hr D-Dimer 620 H* (0-500) ug/L FEU Sodium (136-145) mmol/L Potassium (3.5-5.1) mmol/L Chloride (98-107) mmol/L Carbon Dioxide (21-32) mmol/L Anion Gap (3-11) BUN (7-18) mg/dl Creatinine (0.6-1.2) mg/dl Est Cr Clr Drug Dosing ml/min Est GFR ( Amer) Est GFR (Non-Af Amer) BUN/Creatinine Ratio (10-20) Glucose (70-99) mg/dl POC Glucose (70-99) mg/dl Calcium (8.5-10.1) mg/dl Magnesium (1.8-2.4) mg/dl Ferritin (8-388) ng/ml Total Bilirubin (0.2-1) mg/dl AST (15-37) U/L ALT (12-78) U/L Alkaline Phosphatase (45-117) U/L Lactate Dehydrogenase (84-246) U/L C-Reactive Protein (0-0.29) mg/dl Total Protein (6.4-8.2) gm/dl Albumin (3.4-5.0) gm/dl Globulin (2.5-4.0) gm/dl Albumin/Globulin Ratio (0.9-2) PG Care Time/CCT Total # of Minutes Spent Total Time Spent with Patient: Total time spent is greater than 50% in coordination of care (as documented) at patient's floor/unit and/or counseling patient: Coding Level of Care Code 58040 Subseq Hosp Care Lvl 2 Diagnoses Pneumonia due to COVID-19 virus U07.1; J12.89 Sjogrens syndrome M35.00 Sjogren's organ involvement: unspecified organ involvement Hyperlipidemia E78.5 Hyperlipidemia type: unspecified GERD (gastroesophageal reflux disease) K21.9 Esophagitis presence: esophagitis presence not specified Vitamin D deficiency E55.9 Obstructive sleep apnea G47.33 Small fiber neuropathy G62.9 Impaired fasting glucose R73.01 Hypoxia R09.02 Chronic diastolic CHF (congestive heart failure) I50.32 DVT prophylaxis Z29.9 (1) Sjogrens syndrome Sjogren's organ involvement: unspecified organ involvement Qualified Code(s): M35.00 - Sicca syndrome, unspecified (2) Hyperlipidemia Hyperlipidemia type: unspecified Qualified Code(s): E78.5 - Hyperlipidemia, unspecified (3) GERD (gastroesophageal reflux disease) Esophagitis presence: esophagitis presence not specified Qualified Code(s): K21.9 - Gastro-esophageal reflux disease without esophagitis
[2020-05-17] MEDS: SIMVASTATIN 10 MG TAB PO SCH (20:25)
[2020-05-17] MEDS: INSULIN GLARGINE SOLOSTAR 100 UNITS/ML 3 ML PEN SC SCH (20:31)
[2020-05-17] MEDS: REMDESIVIR 100mg: Days 2-5 IV SCH ×2 (23:42)
[2020-05-18] MEDS: NSS 30mL Flush, Days 1-5 IV SCH (01:19)
[2020-05-18 05:49] LABS: Basophils # (auto) 0.02 K/uL (0-0.2); Basophils % (auto) 0.3 %; Hematocrit (blood only) 37.1 % (37-47); Hemoglobin 11.6 g/dL (12.0-16.0); Immature Granulocytes # (auto) 0.04 K/uL (0.00-0.02); Immature Granulocytes % (auto) 0.6 %; Lymphocytes # (auto) 2.69 K/uL (1.2-3.4); Lymphocytes % (auto) 37.8 %; Mean Corpuscular Hemoglobin 27.2 pg (25-34); Mean Corpuscular Hgb Conc 31.3 g/dL (32-36); Mean Corpuscular Volume 87.1 fL (80-100); Mean Platelet Volume 9.9 fL (7.4-10.4); Neutrophils # (auto) 3.87 K/uL (1.4-6.5); Neutrophils % (auto) 54.3 %; Platelet Count 311 K/uL (130-400); RDW Coefficient of Variation 16.4 % (11.5-14.5); RDW Standard Deviation 52.2 fL (36.4-46.3); Red Blood Count 4.26 M/uL (4.2-5.4); White Blood Count 7.12 K/uL (4.8-10.8)
[2020-05-18 06:21] LABS: D Dimer 520 ug/L FEU (0-500)
[2020-05-18 06:23] LABS: Albumin Level 2.7 gm/dl (3.4-5.0); BUN Creatinine Ratio 19.1 (10-20); Calcium 8.2 mg/dl (8.5-10.1); Creatinine Clr Calc Pharmacy 117.1 ml/min; Est GFR (African American) 96.6; Est GFR (Non-African American) 83.3; Potassium 3.5 mmol/L (3.5-5.1)
[2020-05-18 06:29] LABS: Albumin Globulin Ratio 0.6 (0.9-2); Bilirubin,Total 0.3 mg/dl (0.2-1); C Reactive Protein 1.12 mg/dl (0-0.29); Ferritin 46.3 ng/ml (8-388); Globulin 4.4 gm/dl (2.5-4.0); Total Protein 7.1 gm/dl (6.4-8.2)
[2020-05-18] MEDS: INSULIN ASPART 100 UNITS/ML 3 ML PEN SC SCH ×3 (09:23→17:05)
[2020-05-18] MEDS: guaiFENesin 600 MG TABCR PO SCH (09:25)
[2020-05-18] MEDS: GABAPENTIN 300 MG CAP PO SCH (09:25)
[2020-05-18] MEDS: CHOLECALCIFEROL 1,000 UNITS 25 MCG TAB PO SCH (09:25)
[2020-05-18] MEDS: FUROSEMIDE 40 MG TAB PO SCH (09:26)
[2020-05-18] MEDS: ZINC SULFATE 220 MG CAPSULE PO SCH (09:26)
[2020-05-18] MEDS: FAMOTIDINE 40 MG TABLET PO SCH (09:26)
[2020-05-18] MEDS: dexAMETHasone 6 MG in SYRINGE 0 ML IV SCH (09:27)
[2020-05-18] MEDS: ENOXAPARIN INJ 40 MG/0.4 ML SYR SQ SCH (09:27)
--- NOTE | 2020-05-18 15:31 | Discharge Summary ---
Date of Service May 18, 2020 Admission HPI Per Admitting Provider Cristal Osuna is a 44yo C female with history of Sjogren's syndrome, HTN, HLP, impaired fasting glucose and obesity presenting with Covid-19 PNA. Patient developed symptoms of fever/chills/cough/SOB on the evening of 05/11/20 then later developed watery diarrhea. She has been taking Tylenol OTC cough syrup as needed as well as cough lozenges dextromethorphan and Mucinex. She had testing for Covid-19 performed on 05/12/20 which was found to be positive. Patient's symptoms have been worsening. She has an ongoing cough as well as shortness of breath. She states that her ribs hurt but otherwise denies chest pain. No additional complaints at this time. ER Course: Tylenol 1gm, Albuterol 12mL neb, Dexamethasone 10mg IV, Benadryl 25mg IV, Guaifenesin 600mg PO, KCL 40mEqPO, NSS x 1L, NSS nasal Principal Diagnosis COVID-19 Pneumonia, Acute respiratory failure with hypoxia Discharge Exam Constitutional WD/WN, vitals as above + obese Eyes + anicteric sclerae ENMT Ears: no hearing impairment Neck trachea midline, no thyromegaly Respiratory normal respiratory effort, lungs clear to auscultation Cardiovascular RRR, no murmur, no edema Extremities: no calf tenderness Chest (Breasts) Chest: normal inspection of chest Gastrointestinal (Abdomen) normal bowel sounds, soft, nontender, no hepatosplenomegaly Musculoskeletal Extremities: extremities normal to inspection; no cyanosis and no clubbing Skin no rashes, warm and dry Neurologic moves all extremities and awake; no focal motor deficits Psychiatric A+Ox3, euthymic affect Lymphatic no lymphedema Discharge Data Allergies Allergy/AdvReac Type Severity Reaction Status Date / Time Penicillins Allergy Mild Unknown Verified 05/15/20 22:18 citalopram AdvReac Unknown Anxiety Verified 05/15/20 22:18 Consultations 05/15/20 22:00 ED Decision to Admit Stat 05/16/20 00:05 Consult Pulmonology Routine Ordered Studies CXR Hospital Course (1) Pneumonia due to COVID-19 virus: This patient is a 44yo C female presenting with Covid-19 associated PNA. Patient was diagnosed with Covid-19 on 05/12, reports symptoms of cough and SOB have been progressively worsening. Hypoxic in the ER to 87% on room air. Patient lives alone. 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 She denies close contact with any known Covid-19 positive person and was not personally informed of a positive contact through contact tracing. Risk factors for severe disease include obesity (BMI=49.2), HTN, HLP, Impaired fasting glucose. Patient also with Sjogren's syndrome on home Plaquenil 200mg po BID. Is now markedly improved and weaned off oxygen. SHe ambulated for a 6 minute walk test and POx was 99% on room air Markers of inflammation are elevated but are coming down, procalcitonin is negative Do not suspect secondary bacterial pneumonia -Dexamethasone 10mg IV given in ER -have continued 6mg IV daily x10-day course and will convert to 6mg p.o. bid upon discharge for 6 more days -Received remdesivir therapy x4-day course- discussed with Pulmonary team upon admission. I believe that she is doing well enough that she does not need to complete the 5-day course-received 4 days -Patient declined convalescent plasma -Continue Pepcid 20 mg po daily while on steroids -received continue zinc supplement 220 mg po daily -continue Guaifenasin 1200mg po BID -Continue albuterol HFA as needed for SOB. -Lovenox 40mg SQ q 12 hours for DVT prophylaxis will be continued upon discharge x 2 more weeks (2) Sjogrens syndrome: Patient with Sjogrens syndrome -Hold Plaquenil 200mg po BID while on Remdesivir due to interaction-can restart on 05/20 (3) Hyperlipidemia: Chronic. -Continue Simvastatin 10mg po qHS (4) GERD (gastroesophageal reflux disease): Chronic. Patient currently not on medications -give Pepcid 20mg po daily as above while on corticosteroid therapy. Some evidence suggests that treatment with Pepcid is associated with improved outcomes, less ventilator use and less inflammatory response (5) Vitamin D deficiency: Chronic. -Continue Vitamin D supplement (6) Obstructive sleep apnea: Chronic. Patient uses CPAP at home. Was recently evaluated by Dr. De La Paz for CPAP compliance - note states that she has been having some difficulty with CPAP compliance since her Covid-19 diagnosis -Encourage CPAP compliance qHS (7) Small fiber neuropathy: Secondary to Sjogren's syndrome -Continue gabapentin (8) Impaired fasting glucose: Hemoglobin A1c 6.5% in 12/2019,was just prescribed metformin XR 500mg once daily-restart on discharge -ISS coverage here especially in the setting of IV dexamethasone With hyperglycemia in the 200s now improved with adding insulin (9) Hypoxia: With acute respiratory failure with hypoxia secondary to COVID-19 pneumonia Much improved and weaned off O2 as above (10) Chronic diastolic CHF (congestive heart failure): Patient follows with a director of laboratory operations and has a diagnosis of chronic EF preserved heart failure Continue home Lasix 40 mg daily No acute concerns (11) DVT prophylaxis: Lovenox 40 BID to be continued x 2 weeks after discharge Code - Full Dispo - discharge to home today Total Time Total Time Spent Total Time Spent (In Minutes): 35 min Total Time Includes: Examination of the Patient, Discharge Planning and Medication Reconciliation Discharge Plan Discharge Items Patient Disposition: Home - Self-Care Reason For Visit: COVID-19 PNA, HYPOXIA Discharge Diagnosis: COVID-19 Pneumonia, Acute respiratory failure with hypoxia Condition on Discharge: Fair Activity: As commented below Lifting: Gradually increase as tolerated Bathing: No limitations Exercise/Sports: Gradually increase as tolerated Driving/Machine Use: No limitations Weightbearing: Full weightbearing Non-emergency contact: Primary Care Provider Call non-emergency contact if: you have any medication questions and your symptoms worsen Follow-up/Referrals: Rosita Grimes MD [Primary Care Provider] - (Please follow up within 1-2 weeks.) Diet: Carb Consistent or DM2 Addtl Attending Provider Instructions: Please finish out the course of dexamethasone which is a steroid to help improve your oxygen levels with COVID-19. You can use the albuterol inhaler as needed for cough. You did not need oxygen anymore prior to your leaving the hospital. You should take the Lovenox injections 40mg twice daily x 2 more weeks to prevent blood clots as you are at high risk for a blood clot. You can restart your Plaquenil on the morning of 05/20. Home Isolation COVID-19 Instructions The following information about Home Isolation is from the CDC Website: https://www.cdc.gov/coronavirus/2019-ncov/hcp/qvibealr-nbrmnpv-elpiyf.html Stay home except to get medical care People who are mildly ill with COVID-19 are able to isolate at home during their illness. You should restrict activities outside your home, except for getting medical care. Do not go to work, school, or public areas. Avoid using public transportation, ride-sharing, or taxis. Separate yourself from other people and animals in your home People: As much as possible, you should stay in a specific room and away from other people in your home. Also, you should use a separate bathroom, if available. Animals: You should restrict contact with pets and other animals while you are sick with COVID-19, just like you would around other people. Although there have not been reports of pets or other animals becoming sick with COVID-19, it is still recommended that people sick with COVID-19 limit contact with animals unti l more information is known about the virus. When possible, have another member of your household care for your animals while you are sick. If you are sick with COVID-19, avoid contact with your pet, including petting, snuggling, being kissed or licked, and sharing food. If you must care for your pet or be around animals while you are sick, wash your hands before and after you interact with pets and wear a face mask. Call ahead before visiting your doctor If you have a medical appointment, call the healthcare provider and tell them that you have or may have COVID-19. This will help the healthcare providers office take steps to keep other people from getting infected or exposed. Wear a face mask You should wear a face mask when you are around other people (e.g., sharing a room or vehicle) or pets and before you enter a healthcare providers office. If you are not able to wear a face mask (for example, because it causes trouble breathing), then people who live with you should not stay in the same room with you, or they should wear a face mask if they enter your room. Cover your coughs and sneezes Cover your mouth and nose with a tissue when you cough or sneeze. Throw used tissues in a lined trash can. Immediately wash your hands with soap and water for at least 20 seconds or, if soap and water are not available, clean your hands with an alcohol-based hand supervisor pipeline that contains at least 60% alcohol. Clean your hands often Wash your hands often with soap and water for at least 20 seconds, especially after blowing your nose, coughing, or sneezing; going to the bathroom; and before eating or preparing food. If soap and water are not readily available, use an alcohol-based hand supervisor pipeline with at least 60% alcohol, covering all surfaces of your hands and rubbing them together until they feel dry. Soap and water are the best option if hands are visibly dirty. Avoid touching your eyes, nose, and mouth with unwashed hands. Avoid sharing personal household items You should not share dishes, drinking glasses, cups, eating utensils, towels, or bedding with other people or pets in your home. After using these items, they should be washed thoroughly with soap and water. Clean all high-touch surfaces everyday High touch surfaces include counters, tabletops, doorknobs, bathroom fixtures, toilets, phones, keyboards, tablets, and bedside tables. Also, clean any surfaces that may have blood, stool, or body fluids on them. Use a household cleaning spray or wipe, according to the label instructions. Labels contain instructions for safe and effective use of the cleaning product including precautions you should take when applying the product, such as wearing gloves and making sure you have good ventilation during use of the product. Monitor your symptoms Seek prompt medical attention if your illness is worsening (e.g., difficulty breathing).Beforeseeking care, call your healthcare provider and tell them that you have, or are being evaluated for, COVID-19. Put on a face mask before you enter the facility. These steps will help the healthcare providers office to keep other people in the office or waiting room from getting infected or exposed. Ask your healthcare provider to call the local or state health department. Persons who are placed under active monitoring or facilitated self- monitoring should follow instructions provided by their local health department or occupational health professionals, as appropriate. When working with your local health department check their available hours. If you have a medical emergency and need to call 911, notify the dispatch personnel that you have, or are being evaluated for COVID-19. If possible, put on a face mask before emergency medical services arrive. Discontinuing home isolation Patients with confirmed COVID-19 should remain under home isolation precautions until the risk of secondary transmission to others is thought to be low. The decision to discontinue home isolation precautions should be made on a eurl-ze-mrie basis, in consultation with healthcare providers and state and local health departments. Pending Studies at Discharge: No Stand-Alone Forms: [facility] Medications and DC Order Prescriptions: New albuterol sulfate [Ventolin HFA] 90 mcg/actuation Hfa Aerosol Inhaler 2 puff inhalation Q4H PRN (Reason: shortness of breath or wheezing) Qty: 18 RF: 0 enoxaparin 40 mg/0.4 mL Syringe 40 mg subcut BID@799,1999 14 Days Qty: 28 RF: 0 famotidine 20 mg tablet 20 mg PO DAILY Qty: 10 RF: 0 guaifenesin [Mucinex] 600 mg Tablet Extended Release 12hr 1,200 mg PO Q12@799,1999 Qty: 30 RF: 0 dexamethasone 6 mg tablet 6 mg PO BID 6 Days Qty: 12 RF: 0 Continued simvastatin 10 mg tablet 10 mg PO HS Qty: 90 RF: 3 gabapentin 300 mg capsule 300 mg PO BID RF: 0 hydroxychloroquine [Plaquenil] 200 mg Tablet 200 mg PO BID RF: 0 sennosides-docusate sodium [Senna-S] 8.6-50 mg tablet 2 tab PO QPM RF: 0 furosemide 40 mg Tablet 40 mg PO DAILY RF: 0 cholecalciferol (vitamin D3) [Vitamin D3] 50 mcg (2,000 unit) Capsule 2,000 unit PO DAILY RF: 0 metformin 500 mg tablet extended release 24 hr 500 mg PO DAILY RF: 0 Discontinued doxycycline hyclate 100 mg capsule 100 mg PO BID Qty: 14 RF: 0 Discharge Orders: Discharge Order (Routine); Ordered 05/18/20 Ordered By: Maame Morelos Admission Data Admit Date/Time: 05/15/20 23:12 Attending Provider: Maame Morelos Admit Provider: Kim Stratton Primary Care Provider: Rosita Grimes Other Providers: Kim Stratton ; Bernardino Coronado Coding Level of Care Code D/C Day Management >30 mins Diagnoses Pneumonia due to COVID-19 virus U07.1; J12.89 Sjogrens syndrome M35.00 Sjogren's organ involvement: unspecified organ involvement Hyperlipidemia E78.5 Hyperlipidemia type: unspecified GERD (gastroesophageal reflux disease) K21.9 Esophagitis presence: esophagitis presence not specified Vitamin D deficiency E55.9 Obstructive sleep apnea G47.33 Small fiber neuropathy G62.9 Impaired fasting glucose R73.01 Hypoxia R09.02 Chronic diastolic CHF (congestive heart failure) I50.32 DVT prophylaxis Z29.9
[2020-05-18] MEDS: REMDESIVIR 100mg: Days 2-5 IV SCH (17:02)
== END 2020-05-18 20:23 | disposition home or self-care (01) | DRG 177 ==
LOC: ED 17:04 → SUATTDRO 23:12 → 2S 23:12

== ENCOUNTER 2024-06-17 21:59 | Observation (INO) ==
[2024-06-17 22:06] VITALS: RESP 18
--- NOTE | 2024-06-17 22:18 | Emergency Department Note ---
Impression & Plan Dyspnea, Right-sided chest wall pain ED Provider Note CHIEF COMPLAINT: Shortness of breath x3 days HISTORY OF PRESENT ILLNESS: This 48 year old female patient presents to the emergency department via private vehicle for evaluation of shortness of breath. This has been going on for about 3 days. Patient states about 3 weeks ago, she fell on her porch and landed on her right side. She states that she has had some pain in the right breast since that time. She states "more like tissue, not like bone". She states that has not been taking any medication regularly for the symptoms. No recent leg pain or swelling. Over the past 3 days, she has had worsening dyspnea on exertion and orthopnea. The patient states that she has not had a cold or congestion. No runny nose or sore throat. The patient denies any nausea or vomiting. No chest pain. She denied wheezing or cough. There has been no coughing up sputum blood. Patient denies any leg pain or swelling that is different than her baseline. She has not tried any medication or remedies for her symptoms. She denies any history of lung disease. History provided by: Patient REVIEW OF SYSTEMS: A 10 system review of systems was performed with positives and pertinent negatives listed in the history of present illness. All other systems were reviewed and are negative. ALLERGIES: Penicillin, citalopram PHYSICAL EXAM: VITALS: Vitals are noted on the nurse's note and reviewed by myself. GENERAL: This is a 48 year old female, in no acute distress, nondiaphoretic, well-developed well-nourished. SKIN: The skin was without rashes, erythema, edema, or bruising. There is no tenting of the skin. Capillary refill less than 2 seconds. HEAD: Normocephalic atraumatic. EARS: External auditory canals clear, tympanic membranes pearly iglesias without erythema or effusion bilaterally. No hemotympanum. Negative martinez sign EYES: Pupils equal round and reactive to light and accommodation. Conjunctivae without injection, sclerae without icterus. Extraocular movements intact. NOSE: Patent, turbinates without inflammation or discharge. No sinus tenderness. MOUTH: Mucous membranes moist. Tonsils are not enlarged. Pharynx without erythema or exudate. Uvula midline. Airway patent. Tongue does not deviate. NECK: Supple without nuchal rigidity. No lymphadenopathy. Cervical spine is nontender. No JVD. HEART: Regular rate and rhythm without murmurs gallops or rubs. LUNGS: Increased work of breathing. Clear to auscultation bilaterally without wheezes, rales or rhonchi. No retractions or accessory muscle use. ABDOMEN: Positive bowel sounds x 4. Soft, nontender, without masses or organomegaly. Renae sign negative. No guarding or rebound tenderness. MUSCULOSKELETAL: No muscle atrophy, erythema, or edema noted. Full range of motion without joint tenderness in all extremities. No tenderness to palpation. Normal gait. Strength 5/5 throughout. NEURO: Patient was alert and oriented to person place and time. Normal sensation to light and sharp touch. Deep tendon reflexes 2+ throughout. No focal neurological deficits. An order was placed for continuous benefits advisor. The monitor showed a normal sinus rhythm at a ventricular rate of 90 bpm, per my interpretation. EKG was reviewed by myself and found to be normal sinus rhythm at a rate of 86 beats per minute and per my interpretation reveals no ST elevation or depression. No T wave inversion. No prior EKG available for comparison. Imaging as interpreted by myself and the radiologist revealed no infiltrate, with radiologist interpretation as above. Per my independent interpretation, there is cardiomegaly when compared to most recent CXR which was completed 4 years ago. EMERGENCY DEPARTMENT COURSE: The patient was seen and evaluated as above. Patient presents for shortness of breath for the past 3 days. She has been experiencing dyspnea on exertion, orthopnea, and paroxysmal nocturnal dyspnea which is different than her baseline symptoms. Patient does have a history of sleep apnea and uses CPAP at home, but states that she is still waking overnight due to the shortness of breath. Patient denies any recent infectious type of symptoms to include cough or fever. No recent URI symptoms. IV access was obtained, labs are drawn. Was reviewed. Per my interpretation, there is no leukocytosis or anemia. No concerning thrombocytopenia. Renal, hepatic function and electrolytes without significant abnormality. Coags normal. D-dimer 500. hCG negative. Urinalysis negative for blood or evidence of infection. Respiratory bio fire testing was negative. Case was discussed with the attending physician. Chest x-ray completed and reviewed by myself, Dr. Suazo, as well as radiologist as noted. There as concern for cardiomegaly which has progressed since most recent CXR completed 4 years ago. Discussed the workup completed with the patient at bedside. Offered admission versus outpatient follow-up with her primary care provider to further evaluate her symptoms. Given the rapid onset of her symptoms and progressive worsening over the past 3 days, utilizing shared decision making, the patient did elect for inpatient evaluation and workup. Discussed case with the program manager. Discussed case with Dr. Garsia, [facility] hospitalist physician. Please see hospitalist dictation regarding ongoing management and final disposition of this patient. I attest that I have personally reviewed the patient medication list. I attest that I have reviewed the patient's blood pressure and it was found to be normal GCS: 15 In the evaluation and treatment of this patient the following differential diagnoses were entertained: Reactive airway disease, pneumonia, pneumothorax, COPD, CHF, infections, cardiac ischemia, pulmonary embolism, musculoskeletal, gastrointestinal, as well as other pathologies. The chart was completed utilizing [employer] Speech voice recognition software. Grammatical errors, random word insertions, pronoun errors, and incomplete sentences are an occasional consequence of this system due to software limitations, ambient noise, and hardware issues. Any formal questions or concerns about the content, text, or information contained within the body of this dictation should be directly addressed to the provider for clarification. Past Med/Surg History Problem List Right-sided chest wall pain (Acute) Dyspnea (Acute) Vitamin D deficiency (Chronic) Medical History Morbid obesity Subclinical hypothyroidism Metabolic syndrome T2DM (type 2 diabetes mellitus) Chronic diastolic CHF (congestive heart failure) Sjogrens syndrome with peripheral neuropathy and Raynaud's Small fiber neuropathy Obstructive sleep apnea treated with CPAP GERD (gastroesophageal reflux disease) Hyperlipidemia Bladder mass leiomyoma - s/p resection 2019 Surgical History H/O breast biopsy History of colonoscopy Family History Mother Ovarian cancer Grandmother (Paternal) Myocardial infarction Uncle Prostate cancer Colonic polyp Denies family history of Breast cancer Social History Smoking Status: Never smoker Second Hand Exposure: No; Do You Dip or Chew Tobacco: No; Hx Alcohol Use: No Hx Substance Use: No Preferred Language: Russian Communication Ability: Effective Visual Impairment: No Limitations Hearing Ability: Normal Geospatial Technologist Required: No Beliefs That Will Affect Care: None marital status: Single Current Living Situation: Alone current occupational status: employed Feels Safe at Home: Yes Dental Care, Regularly: Yes Physical Activity Frequency: Daily Assistive Devices: None Allergies Allergies Allergy/AdvReac Type Severity Reaction Status Date / Time Penicillins Allergy Unknown HAPPENED Verified 04/09/24 16:08 AN citalopram AdvReac Intermediate Anxiety Verified 04/09/24 16:08 Home Meds Home Medications Medication Instructions Recorded Confirmed hydroxychloroquine 200 mg tablet 200 mg PO BID 10/19/18 06/18/24 (Plaquenil) furosemide 40 mg tablet 40 mg PO HS 11/27/18 06/18/24 cholecalciferol (vitamin D3) 50 2,000 unit PO HS 05/15/20 06/18/24 mcg (2,000 unit) capsule (Vitamin D3) aspirin 81 mg tablet,delayed 81 mg PO DAILY 05/25/21 06/18/24 release (Adult Aspirin Regimen) gabapentin 300 mg capsule 300 mg PO BID PRN Pain 05/25/21 06/18/24 sennosides 8.6 mg-docusate sodium 3 tab-cap PO QPM 05/25/21 06/18/24 50 mg tablet (Senna-S) levothyroxine 100 mcg tablet 100 mcg PO DAILY 06/18/24 06/18/24 (Synthroid) Previous Rx's Medication Instructions Recorded blood-glucose meter (OneTouch #1 ea 06/04/21 Verio Meter) Auto Titrating CPAP #1 ea 04/05/22 albuterol sulfate 90 mcg/actuation 2 puff inhalation Q6H PRN 05/05/23 aerosol inhaler shortness of breath or wheezing #6.7 grams blood-glucose sensor (FreeStyle #2 ea 07/19/23 Bradley 3 Sensor device) rosuvastatin 20 mg tablet 20 mg PO DAILY #90 tabs 01/12/24 blood sugar diagnostic (OneTouch #150 ea 04/09/24 Verio test strips) tirzepatide 10 mg/0.5 mL 10 mg (0.5 mL) subcut Q7D #2 mL 04/10/24 subcutaneous pen injector (Mounjaro) FreeStyle Bradley 3 Plus Sensor #2 ea 04/11/24 (blood-glucose sensor) cyclobenzaprine 5 mg tablet See Rx Instructions PO TID PRN 05/30/24 muscle spasm #90 tabs Results & Data (ED) Vital Signs Vital Signs - 24 hr 06/17/24 21:59 06/17/24 22:02 06/17/24 22:15 Temperature 36.4 C L Temperature Source Oral Pulse Rate 90 Pulse Rate [Finger] Pulse Rhythm Pulse Rhythm [Finger] Pulse Strength [Finger] Respiratory Rate 18 Respiratory Effort / Characteristics Non-Labored Respiratory Depth Deep Blood Pressure 127/67 Blood Pressure [Right Arm] Blood Pressure Mean 87 Blood Pressure Mean [Right Arm] Blood Pressure Position [Right Arm] Pulse Oximetry 95 Oxygen Delivery Method Room Air Room Air Room Air Sepsis Recent Fever Within 48 Hours No Sepsis New/Unexplained Change in Mental Status No Sepsis Action Taken by Nursing No Action Required 06/17/24 22:15 06/17/24 22:25 06/17/24 22:26 Temperature Temperature Source Pulse Rate 87 82 Pulse Rate [Finger] 81 Pulse Rhythm Regular Pulse Rhythm [Finger] Regular Pulse Strength [Finger] Normal Respiratory Rate 18 18 Respiratory Effort / Characteristics Non-Labored Spontaneous Respiratory Depth Normal Blood Pressure Blood Pressure [Right Arm] 133/78 Blood Pressure Mean Blood Pressure Mean [Right Arm] 96 Blood Pressure Position [Right Arm] Lying Pulse Oximetry 95 95 Oxygen Delivery Method Room Air Room Air Sepsis Recent Fever Within 48 Hours Sepsis New/Unexplained Change in Mental Status Sepsis Action Taken by Nursing 06/17/24 22:57 06/18/24 00:00 Temperature Temperature Source Pulse Rate Pulse Rate [Finger] 97 H 85 Pulse Rhythm Pulse Rhythm [Finger] Regular Pulse Strength [Finger] Normal Respiratory Rate 18 18 Respiratory Effort / Characteristics Non-Labored Spontaneous Respiratory Depth Normal Normal Blood Pressure Blood Pressure [Right Arm] 104/71 133/78 Blood Pressure Mean Blood Pressure Mean [Right Arm] 82 96 Blood Pressure Position [Right Arm] Lying Pulse Oximetry 94 95 Oxygen Delivery Method Room Air Room Air Sepsis Recent Fever Within 48 Hours Sepsis New/Unexplained Change in Mental Status Sepsis Action Taken by Nursing Laboratory Data 06/17/24 22:10 06/17/24 22:10 Lab Results 06/17/24 06/17/24 06/17/24 Range/Units 22:10 22:35 23:53 WBC 9.87 (4.8-10.8) K/ul RBC 4.92 (4.20-5.40) M/uL Hgb 13.9 (12.0-16.0) g/dl Hct 43.7 (37.0-47.0) % MCV 88.8 (80.0-100.0) fL MCH 28.3 (25.0-34.0) pg MCHC 31.8 L (32.0-36.0) g/dL RDW Std Deviation 49.5 H (36.4-46.3) fL RDW Coeff of Nahid 15.3 H (11.5-14.5) % Plt Count 342 (130-400) K/uL MPV 9.8 (9.4-12.4) fL Immature Gran % (Auto) 0.2 % Neut % (Auto) 55.2 % Lymph % (Auto) 37.6 % Crook % (Auto) 5.6 % Eos % (Auto) 0.7 % Baso % (Auto) 0.7 % Neut # (Auto) 5.45 (1.40-6.50) K/uL Lymph # (Auto) 3.71 H (1.20-3.40) K/uL Crook # (Auto) 0.55 (0.11-0.59) K/uL Eos # (Auto) 0.07 (0.00-0.50) K/uL Baso # (Auto) 0.07 (0.00-0.20) K/uL Immature Gran # (Auto) 0.02 (0.01-0.20) K/uL PT 9.8 (9.0-12.0) Seconds INR 0.9 (0.9-1.1) APTT 26 (21-31) Seconds PTT Ratio 1.0 D-Dimer 500 (0-500) ug/L FEU Sodium 140 (136-145) mmol/L Potassium 4.2 (3.5-5.1) mmol/L Chloride 105 (98-107) mmol/L Carbon Dioxide 27 (21-32) mmol/L Anion Gap 8 (3-11) BUN 22 (6-23) mg/dl Creatinine 0.86 (0.6-1.2) mg/dl Est Cr Clr Drug Dosing 117.1 ml/min eGFR 82.25 BUN/Creatinine Ratio 25.6 H (10-20) Glucose 136 H (70-99(Fasting)) mg/dl Calcium 10.2 (8.6-10.3) mg/dl Magnesium 2.2 (1.7-2.4) mg/dl Total Bilirubin 0.3 (0.2-1.0) mg/dl AST 15 (13-39) U/L ALT 24 (7-52) U/L Alkaline Phosphatase 95 (34-104) U/L Troponin I High Sens 4.6 (0-14) pg/ml B-Natriuretic Peptide 18 (0-100) pg/ml Total Protein 8.4 H (6.0-8.3) gm/dl Albumin 4.3 (3.4-5.0) gm/dl Globulin 4.1 H (2.5-4.0) gm/dl Albumin/Globulin Ratio 1.0 (0.9-2) HCG, Qual Negative (Negative) Urine Color Yellow Urine Appearance Clear (Clear) Urine pH 5.5 (4.5-7.5) Ur Specific Elkins 1.019 (1.000-1.030) Urine Protein Negative (Negative) Urine Glucose (UA) Negative (Negative) Urine Ketones Negative (Negative) Urine Blood Negative (Negative) Urine Nitrite Negative (Negative) Urine Bilirubin Negative (Negative) Urine Urobilinogen Negative (Negative) Ur Leukocyte Esterase Negative (Negative) Adenovirus (PCR) Not Detected (NotDetected) B. pertussis DNA (PCR) Not Detected (NotDetected) B.parapertussis DNA PCR Not Detected (NotDetected) C. pneumoniae DNA (PCR) Not Detected (NotDetected) Coronavirus OC43 (PCR) Not Detected (NotDetected) Coronavirus HKU1 (PCR) Not Detected (NotDetected) Coronavirus 229E (PCR) Not Detected (NotDetected) SARS-CoV-2 (PCR) Not Detected (NotDetected) Coronavirus NL63 (PCR) Not Detected (NotDetected) Human Metapneumovir PCR Not Detected (NotDetected) Influenza Type A (PCR) Not Detected (NotDetected) Influenza Type B (PCR) Not Detected (NotDetected) M. pneumoniae (PCR) Not Detected (NotDetected) Parainfluenza 1 (PCR) Not Detected (NotDetected) Parainfluenza 2 (PCR) Not Detected (NotDetected) Parainfluenza 3 (PCR) Not Detected (NotDetected) Parainfluenza 4 (PCR) Not Detected (NotDetected) RSV (PCR) Not Detected (NotDetected) Entero/Rhino (PCR) Not Detected (NotDetected) 06/18/24 Range/Units 00:55 WBC (4.8-10.8) K/ul RBC (4.20-5.40) M/uL Hgb (12.0-16.0) g/dl Hct (37.0-47.0) % MCV (80.0-100.0) fL MCH (25.0-34.0) pg MCHC (32.0-36.0) g/dL RDW Std Deviation (36.4-46.3) fL RDW Coeff of Nahid (11.5-14.5) % Plt Count (130-400) K/uL MPV (9.4-12.4) fL Immature Gran % (Auto) % Neut % (Auto) % Lymph % (Auto) % Crook % (Auto) % Eos % (Auto) % Baso % (Auto) % Neut # (Auto) (1.40-6.50) K/uL Lymph # (Auto) (1.20-3.40) K/uL Crook # (Auto) (0.11-0.59) K/uL Eos # (Auto) (0.00-0.50) K/uL Baso # (Auto) (0.00-0.20) K/uL Immature Gran # (Auto) (0.01-0.20) K/uL PT (9.0-12.0) Seconds INR (0.9-1.1) APTT (21-31) Seconds PTT Ratio D-Dimer (0-500) ug/L FEU Sodium (136-145) mmol/L Potassium (3.5-5.1) mmol/L Chloride (98-107) mmol/L Carbon Dioxide (21-32) mmol/L Anion Gap (3-11) BUN (6-23) mg/dl Creatinine (0.6-1.2) mg/dl Est Cr Clr Drug Dosing ml/min eGFR BUN/Creatinine Ratio (10-20) Glucose (70-99(Fasting)) mg/dl Calcium (8.6-10.3) mg/dl Magnesium (1.7-2.4) mg/dl Total Bilirubin (0.2-1.0) mg/dl AST (13-39) U/L ALT (7-52) U/L Alkaline Phosphatase (34-104) U/L Troponin I High Sens 4.0 (0-14) pg/ml B-Natriuretic Peptide (0-100) pg/ml Total Protein (6.0-8.3) gm/dl Albumin (3.4-5.0) gm/dl Globulin (2.5-4.0) gm/dl Albumin/Globulin Ratio (0.9-2) HCG, Qual (Negative) Urine Color Urine Appearance (Clear) Urine pH (4.5-7.5) Ur Specific Elkins (1.000-1.030) Urine Protein (Negative) Urine Glucose (UA) (Negative) Urine Ketones (Negative) Urine Blood (Negative) Urine Nitrite (Negative) Urine Bilirubin (Negative) Urine Urobilinogen (Negative) Ur Leukocyte Esterase (Negative) Adenovirus (PCR) (NotDetected) B. pertussis DNA (PCR) (NotDetected) B.parapertussis DNA PCR (NotDetected) C. pneumoniae DNA (PCR) (NotDetected) Coronavirus OC43 (PCR) (NotDetected) Coronavirus HKU1 (PCR) (NotDetected) Coronavirus 229E (PCR) (NotDetected) SARS-CoV-2 (PCR) (NotDetected) Coronavirus NL63 (PCR) (NotDetected) Human Metapneumovir PCR (NotDetected) Influenza Type A (PCR) (NotDetected) Influenza Type B (PCR) (NotDetected) M. pneumoniae (PCR) (NotDetected) Parainfluenza 1 (PCR) (NotDetected) Parainfluenza 2 (PCR) (NotDetected) Parainfluenza 3 (PCR) (NotDetected) Parainfluenza 4 (PCR) (NotDetected) RSV (PCR) (NotDetected) Entero/Rhino (PCR) (NotDetected) Administered Medications Discontinued Medications Furosemide (Furosemide 40 Mg Tab) 40 mg PO NOW ONE Stop: 06/18/24 00:52 Last Admin: 06/18/24 01:26 Dose: 40 mg Documented By: CORBIN Hydroxychloroquine Sulfate (Hydroxychloroquine Sulfate 200 Mg Tab) 200 mg PO NOW STA Stop: 06/18/24 00:50 Last Admin: 06/18/24 01:26 Dose: 200 mg Documented By: CORBIN Rosuvastatin Calcium (Rosuvastatin Calcium 20 Mg Tab) 20 mg PO NOW STA Stop: 06/18/24 00:53 Last Admin: 06/18/24 01:26 Dose: 20 mg Documented By: CORBIN Senna/Docusate Sodium (Docusate Sodium/Senna 50/8.6mg Tab) 1 tab PO NOW STA Stop: 06/18/24 00:53 Last Admin: 06/18/24 01:26 Dose: 1 tab Documented By: CORBIN Imaging Data Radiologist's Impression: Chest X-Ray 06/17/24 22:18 Exam(s): XR CXR 1 VIEW EXAM: XR Chest, 1 View CLINICAL HISTORY: Reason for exam: Dyspnea. TECHNIQUE: Frontal view of the chest. COMPARISON: 05/15/2020. FINDINGS: There is a poor inspiratory effort. Lungs: No consolidation. No pulmonary vascular congestion is seen. Pleural space: No pleural effusion is seen. No pneumothorax. Heart: Heart is top normal in size.. Mediastinum: Unremarkable. Bones/joints: Grossly unremarkable. IMPRESSION: No acute pulmonary disease.. Electronically signed by: Mayito Parson MD 06/17/24 23:33 PM Discharge Plan Visit Data Chief Complaint: Shortness of Breath/Dyspnea Stated Complaint: SOB, INDIGESTION, RT SIDE PAIN ED Provider: Guillaume Suazo ED Midlevel Provider: Shena Petty Discharge Problem: Dyspnea, Right-sided chest wall pain Patient Disposition: Admitted As Inpatient Condition: Good Discharge Instructions Interventions: ED Discharge Assessment Last Done: 06/18/24 01:43
[2024-06-17 22:32] LABS: Basophils # (auto) 0.07 K/uL (0.00-0.20); Basophils % (auto) 0.7 %; Eosinophils # (auto) 0.07 K/uL (0.00-0.50); Eosinophils % (auto) 0.7 %; Hematocrit (blood only) 43.7 % (37.0-47.0); Hemoglobin 13.9 g/dl (12.0-16.0); Immature Granulocytes # (auto) 0.02 K/uL (0.01-0.20); Immature Granulocytes % (auto) 0.2 %; Lymphocytes # (auto) 3.71 K/uL (1.20-3.40); Lymphocytes % (auto) 37.6 %; Mean Corpuscular Hemoglobin 28.3 pg (25.0-34.0); Mean Corpuscular Hgb Conc 31.8 g/dL (32.0-36.0); Mean Corpuscular Volume 88.8 fL (80.0-100.0); Mean Platelet Volume 9.8 fL (9.4-12.4); Monocytes # (auto) 0.55 K/uL (0.11-0.59); Monocytes % (auto) 5.6 %; Neutrophils # (auto) 5.45 K/uL (1.40-6.50); Neutrophils % (auto) 55.2 %; Platelet Count 342 K/uL (130-400); RDW Coefficient of Variation 15.3 % (11.5-14.5); RDW Standard Deviation 49.5 fL (36.4-46.3); Red Blood Count 4.92 M/uL (4.20-5.40); White Blood Count 9.87 K/ul (4.8-10.8)
[2024-06-17 22:48] LABS: Albumin Level 4.3 gm/dl (3.4-5.0); BUN Creatinine Ratio 25.6 (10-20); Bilirubin,Total 0.3 mg/dl (0.2-1.0); Calcium 10.2 mg/dl (8.6-10.3); Creatinine Clr Calc Pharmacy 117.1 ml/min; Globulin 4.1 gm/dl (2.5-4.0); Magnesium 2.2 mg/dl (1.7-2.4); Potassium 4.2 mmol/L (3.5-5.1); Total Protein 8.4 gm/dl (6.0-8.3)
[2024-06-17 22:53] LABS: Pregnancy Test, Serum Negative (Negative)
[2024-06-17 22:54] LABS: Troponin I High Sensitivity 4.6 pg/ml (0-14)
[2024-06-17 23:31] LABS: D Dimer 500 ug/L FEU (0-500); INR 0.9 (0.9-1.1); Partial Thromboplastin Time 26 Seconds (21-31); Prothrombin Time 9.8 Seconds (9.0-12.0)
--- NOTE | 2024-06-17 23:33 | XRay Report ---
Exam(s): XR CXR 1 VIEW EXAM: XR Chest, 1 View CLINICAL HISTORY: Reason for exam: Dyspnea. TECHNIQUE: Frontal view of the chest. COMPARISON: 05/15/2020. FINDINGS: There is a poor inspiratory effort. Lungs: No consolidation. No pulmonary vascular congestion is seen. Pleural space: No pleural effusion is seen. No pneumothorax. Heart: Heart is top normal in size.. Mediastinum: Unremarkable. Bones/joints: Grossly unremarkable. IMPRESSION: No acute pulmonary disease.. Electronically signed by: Mayito Parson MD 06/17/24 23:33 PM
[2024-06-17 23:40] LABS: Adenovirus PCR Not Detected (NotDetected); Bordetella parapertussis PCR Not Detected (NotDetected); Bordetella pertussis PCR Not Detected (NotDetected); Chlamydia pneumoniae PCR Not Detected (NotDetected); Coronavirus 229E PCR Not Detected (NotDetected); Coronavirus CoV-2 (COVID19)PCR Not Detected (NotDetected); Coronavirus HKU1 PCR Not Detected (NotDetected); Coronavirus NL63 PCR Not Detected (NotDetected); Coronavirus OC43PCR Not Detected (NotDetected); Human Metapneumovirus PCR Not Detected (NotDetected); Influenza A PCR Not Detected (NotDetected); Influenza B PCR Not Detected (NotDetected); Mycoplasma pneumoniae PCR Not Detected (NotDetected); Parainfluenza Virus 1 PCR Not Detected (NotDetected); Parainfluenza Virus 2 PCR Not Detected (NotDetected); Parainfluenza Virus 3 PCR Not Detected (NotDetected); Parainfluenza Virus 4 PCR Not Detected (NotDetected); Respiratory Syncytial VirusPCR Not Detected (NotDetected); Rhinovirus/Enterovirus PCR Not Detected (NotDetected)
[2024-06-18 00:01] LABS: Appearance Urine Clear (Clear); Bilirubin Urine Negative (Negative); Blood Urine Negative (Negative); Color Urine Yellow; Glucose Urine UA Negative (Negative); Ketones Urine Negative (Negative); Leukocyte Esterase Urine Negative (Negative); Nitrite Urine Negative (Negative); Protein Urine Negative (Negative); Specific Gravity Urine 1.019 (1.000-1.030); Urobilinogen Urine Negative (Negative); pH Urine 5.5 (4.5-7.5)
--- NOTE | 2024-06-18 01:00 | History & Physical Report ---
Date of Service June 18, 2024 Assessment & Plan (1) Dyspnea: (2) Sjogrens syndrome: (3) Chronic diastolic CHF (congestive heart failure): (4) T2DM (type 2 diabetes mellitus): Plan Dyspnea on exertion/diastolic CHF- The patient will be admitted to telemetry for serial cardiac enzymes, serial EKG's, cardiac rhythm monitoring and a 2-D echocardiogram with Dopplers. Continue aspirin 81 mg daily, and furosemide 40 mg at bedtime Initial troponin 4.6, follow-up 4.0, will repeat in the a.m. CT angiography chest PE protocol was negative for PE Respiratory BioFire test negative Follows with cardiology Dr. Tamez at [facility] Diabetes mellitus- Hold Mounjaro Placed on Accu-Cheks with NovoLog SSI Check hemoglobin A1c Hyperlipidemia- Continue rosuvastatin 20 mg daily Check a fasting lipid panel Sjogren syndrome- Continue hydroxychloroquine Obstructive sleep apnea- CPAP at bedtime History of Present Illness Chief Complaint: The patient presents to the emergency department with concerns regarding worsening of shortness of breath with dyspnea on exertion over the past 3 days. She states that her symptoms began about 3 weeks ago, when she fell on her porch only on her right side, and has noted intermittent chest wall and right breast pain since that time. She thinks that the fall initially was related to her peripheral neuropathy. She is also have worsening symptoms of heartburn with nausea over the past few weeks. She has been taking her furosemide for lower extremity edema with usual effect. Primary Care Provider: Rosita Grimes MD The patient is a 48-year-old female with a past medical history including hyperlipidemia, morbid obesity, obstructive sleep apnea on CPAP, hypothyroidism, Sjogren's syndrome, spasm, diabetes mellitus, bladder leiomyoma, GERD, chronic diastolic CHF, vitamin D deficiency, and small fiber neuropathy. She presents to the emergency department with symptoms initially began 3 weeks ago after a fall onto her right side of her chest. She has had intermittent issues with shortness of breath since that time, but more so over the past couple days. She reports that she takes her furosemide after she gets home from work, to avoid having to run to the bathroom while at work. She denies any recent travels or sick exposures. Allergies Allergy/AdvReac Type Severity Reaction Status Date / Time Penicillins Allergy Unknown HAPPENED Verified 04/09/24 16:08 AN citalopram AdvReac Intermediate Anxiety Verified 04/09/24 16:08 Home Medications Medication Instructions Recorded Confirmed Type hydroxychloroquine 200 mg tablet 200 mg PO BID 10/19/18 06/18/24 History (Plaquenil) furosemide 40 mg tablet 40 mg PO HS 11/27/18 06/18/24 History cholecalciferol (vitamin D3) 50 2,000 unit PO HS 05/15/20 06/18/24 History mcg (2,000 unit) capsule (Vitamin D3) aspirin 81 mg tablet,delayed 81 mg PO DAILY 05/25/21 06/18/24 History release (Adult Aspirin Regimen) gabapentin 300 mg capsule 300 mg PO BID PRN Pain 05/25/21 06/18/24 History sennosides 8.6 mg-docusate sodium 3 tab-cap PO QPM 05/25/21 06/18/24 History 50 mg tablet (Senna-S) blood-glucose meter (OneTouch #1 ea 06/04/21 06/18/24 Rx Verio Meter) Auto Titrating CPAP #1 ea 04/05/22 06/18/24 Rx albuterol sulfate 90 mcg/actuation 2 puff inhalation Q6H PRN 05/05/23 06/18/24 Rx aerosol inhaler shortness of breath or wheezing #6.7 grams blood-glucose sensor (FreeStyle #2 ea 07/19/23 06/18/24 Rx Bradley 3 Sensor device) rosuvastatin 20 mg tablet 20 mg PO DAILY #90 tabs 01/12/24 06/18/24 Rx blood sugar diagnostic (OneTouch #150 ea 04/09/24 06/18/24 Rx Verio test strips) tirzepatide 10 mg/0.5 mL 10 mg (0.5 mL) subcut Q7D #2 mL 04/10/24 06/18/24 Rx subcutaneous pen injector (Mounluis angelro) FreeStyle Bradley 3 Plus Sensor #2 ea 04/11/24 06/18/24 Rx (blood-glucose sensor) cyclobenzaprine 5 mg tablet See Rx Instructions PO TID PRN 05/30/24 06/18/24 Rx muscle spasm #90 tabs levothyroxine 100 mcg tablet 100 mcg PO DAILY 06/18/24 06/18/24 History (Synthroid) Past Med/Surg History Problem List (Updated 06/18/24 @ 05:14 by Randell Garsia MD) Sjogrens syndrome with peripheral neuropathy and Raynaud's Chronic diastolic CHF (congestive heart failure) T2DM (type 2 diabetes mellitus) Right-sided chest wall pain (Acute) Dyspnea (Acute) Vitamin D deficiency (Chronic) Medical History Morbid obesity Subclinical hypothyroidism Metabolic syndrome T2DM (type 2 diabetes mellitus) Chronic diastolic CHF (congestive heart failure) Sjogrens syndrome with peripheral neuropathy and Raynaud's Small fiber neuropathy Obstructive sleep apnea treated with CPAP GERD (gastroesophageal reflux disease) Hyperlipidemia Bladder mass leiomyoma - s/p resection 2019 Surgical History H/O breast biopsy History of colonoscopy Family History Mother Ovarian cancer Grandmother (Paternal) Myocardial infarction Uncle Prostate cancer Colonic polyp Denies family history of Breast cancer Social History Smoking Status: Never smoker Second Hand Exposure: No; Do You Dip or Chew Tobacco: No; Hx Alcohol Use: No Hx Substance Use: No Preferred Language: Malay Communication Ability: Effective Visual Impairment: No Limitations Hearing Ability: Normal Galley Worker Required: No Beliefs That Will Affect Care: None marital status: Single Current Living Situation: Alone Current Living Situation Comment: lives at home alone current occupational status: employed Feels Safe at Home: Yes Dental Care, Regularly: Yes Physical Activity Frequency: Daily Assistive Devices: None Review of Systems Review of Systems: The patient denies cough, lower extremity swelling, sore throat, fevers, chills, sweats, vomiting, diarrhea , constipation, abdominal pain, pelvic pain, blood in urine or stool, dysuria, urinary frequency or urgency, lightheadedness, dizziness, headache, memory loss, loss of consciousness, rash, abnormal bruising or bleeding, imbalance, focal or generalized weakness, numbness or tingling in arms or legs, generalized arthralgias or myalgias, back or neck pain, or night sweats. The review of systems is otherwise negative other than for that already noted above, and at least 10 systems have been reviewed. Physical Exam Physical Exam: The patient is awake, alert and oriented 3, well developed and well nourished, normocephalic and atraumatic, lying in bed and in no acute distress. HEENT--PERRL, EOMI, mucous membranes and oropharynx normal Neck--supple. No JVD. No bruits. Thyroid normal, trachea midline, no adenopathy. Heart--normal S1 and S2. No murmurs, rubs or gallops. Lungs--clear bilaterally, no respiratory distress, no accessory muscle use. Abdomen--normal bowel sounds and soft. Nontender. Nondistended. Morbidly obese Extremities--1+ bilateral pretibial pitting edema. Dermatologic--normal skin turgor, normal color, no abnormal lymph nodes, no rash. Neurologic--cranial nerves II through XII grossly intact. Rheumatologic--normal range of motion, but somewhat limited by body habitus Psychiatric--normal affect. Results & Data Results & Data Vital Signs (Past 12 Hours) Vital Signs Temp Pulse Pulse Resp BP BP Pulse Ox 06/18/24 00:00 85 18 133/78 95 06/17/24 22:57 97 H 18 104/71 94 06/17/24 22:26 82 18 95 06/17/24 22:25 87 06/17/24 22:15 81 18 133/78 95 06/17/24 22:15 06/17/24 22:02 36.4 C L 90 18 127/67 95 06/17/24 21:59 O2 Del Method 06/18/24 00:00 Room Air 06/17/24 22:57 Room Air 06/17/24 22:26 Room Air 06/17/24 22:25 06/17/24 22:15 Room Air 06/17/24 22:15 Room Air 06/17/24 22:02 Room Air 06/17/24 21:59 Room Air Laboratory Results Laboratory Results WBC 9.87 K/ul (4.8-10.8) 06/17/24 22:10 RBC 4.92 M/uL (4.20-5.40) 06/17/24 22:10 Hgb 13.9 g/dl (12.0-16.0) 06/17/24 22:10 Hct 43.7 % (37.0-47.0) 06/17/24 22:10 MCV 88.8 fL (80.0-100.0) 06/17/24 22:10 MCH 28.3 pg (25.0-34.0) 06/17/24 22:10 MCHC 31.8 g/dL (32.0-36.0) L 06/17/24 22:10 RDW Std Deviation 49.5 fL (36.4-46.3) H 06/17/24 22:10 RDW Coeff of Nahid 15.3 % (11.5-14.5) H 06/17/24 22:10 Plt Count 342 K/uL (130-400) 06/17/24 22:10 MPV 9.8 fL (9.4-12.4) 06/17/24 22:10 Immature Gran % (Auto) 0.2 % 06/17/24 22:10 Neut % (Auto) 55.2 % 06/17/24 22:10 Lymph % (Auto) 37.6 % 06/17/24 22:10 [place] % (Auto) 5.6 % 06/17/24 22:10 Eos % (Auto) 0.7 % 06/17/24 22:10 Baso % (Auto) 0.7 % 06/17/24 22:10 Neut # (Auto) 5.45 K/uL (1.40-6.50) 06/17/24 22:10 Lymph # (Auto) 3.71 K/uL (1.20-3.40) H 06/17/24 22:10 [place] # (Auto) 0.55 K/uL (0.11-0.59) 06/17/24 22:10 Eos # (Auto) 0.07 K/uL (0.00-0.50) 06/17/24 22:10 Baso # (Auto) 0.07 K/uL (0.00-0.20) 06/17/24 22:10 Immature Gran # (Auto) 0.02 K/uL (0.01-0.20) 06/17/24 22:10 PT 9.8 Seconds (9.0-12.0) 06/17/24 22:10 INR 0.9 (0.9-1.1) 06/17/24 22:10 APTT 26 Seconds (21-31) 06/17/24 22:10 PTT Ratio 1.0 06/17/24 22:10 D-Dimer 500 ug/L FEU (0-500) 06/17/24 22:10 Sodium 140 mmol/L (136-145) 06/17/24 22:10 Potassium 4.2 mmol/L (3.5-5.1) 06/17/24 22:10 Chloride 105 mmol/L (98-107) 06/17/24 22:10 Carbon Dioxide 27 mmol/L (21-32) 06/17/24 22:10 Anion Gap 8 (3-11) 06/17/24 22:10 BUN 22 mg/dl (6-23) 06/17/24 22:10 Creatinine 0.86 mg/dl (0.6-1.2) 06/17/24 22:10 Est Cr Clr Drug Dosing 117.1 ml/min 06/17/24 22:10 eGFR 82.25 06/17/24 22:10 BUN/Creatinine Ratio 25.6 (10-20) H 06/17/24 22:10 Glucose 136 mg/dl (70-99(Fasting)) H 06/17/24 22:10 Calcium 10.2 mg/dl (8.6-10.3) 06/17/24 22:10 Magnesium 2.2 mg/dl (1.7-2.4) 06/17/24 22:10 Total Bilirubin 0.3 mg/dl (0.2-1.0) 06/17/24 22:10 AST 15 U/L (13-39) 06/17/24 22:10 ALT 24 U/L (7-52) 06/17/24 22:10 Alkaline Phosphatase 95 U/L (34-104) 06/17/24 22:10 Troponin I High Sens 4.0 pg/ml (0-14) 06/18/24 00:55 B-Natriuretic Peptide 18 pg/ml (0-100) 06/17/24 22:10 Total Protein 8.4 gm/dl (6.0-8.3) H 06/17/24 22:10 Albumin 4.3 gm/dl (3.4-5.0) 06/17/24 22:10 Globulin 4.1 gm/dl (2.5-4.0) H 06/17/24 22:10 Albumin/Globulin Ratio 1.0 (0.9-2) 06/17/24 22:10 HCG, Qual Negative (Negative) 06/17/24 22:10 Urine Color Yellow 06/17/24 23:53 Urine Appearance Clear (Clear) 06/17/24 23:53 Urine pH 5.5 (4.5-7.5) 06/17/24 23:53 Ur Specific [place] 1.019 (1.000-1.030) 06/17/24 23:53 Urine Protein Negative (Negative) 06/17/24 23:53 Urine Glucose (UA) Negative (Negative) 06/17/24 23:53 Urine Ketones Negative (Negative) 06/17/24 23:53 Urine Blood Negative (Negative) 06/17/24 23:53 Urine Nitrite Negative (Negative) 06/17/24 23:53 Urine Bilirubin Negative (Negative) 06/17/24 23:53 Urine Urobilinogen Negative (Negative) 06/17/24 23:53 Ur Leukocyte Esterase Negative (Negative) 06/17/24 23:53 Adenovirus (PCR) Not Detected (NotDetected) 06/17/24 22:35 B. pertussis DNA (PCR) Not Detected (NotDetected) 06/17/24 22:35 B.parapertussis DNA PCR Not Detected (NotDetected) 06/17/24 22:35 C. pneumoniae DNA (PCR) Not Detected (NotDetected) 06/17/24 22:35 Coronavirus OC43 (PCR) Not Detected (NotDetected) 06/17/24 22:35 Coronavirus HKU1 (PCR) Not Detected (NotDetected) 06/17/24 22:35 Coronavirus 229E (PCR) Not Detected (NotDetected) 06/17/24 22:35 SARS-CoV-2 (PCR) Not Detected (NotDetected) 06/17/24 22:35 Coronavirus NL63 (PCR) Not Detected (NotDetected) 06/17/24 22:35 Human Metapneumovir PCR Not Detected (NotDetected) 06/17/24 22:35 Influenza Type A (PCR) Not Detected (NotDetected) 06/17/24 22:35 Influenza Type B (PCR) Not Detected (NotDetected) 06/17/24 22:35 M. pneumoniae (PCR) Not Detected (NotDetected) 06/17/24 22:35 Parainfluenza 1 (PCR) Not Detected (NotDetected) 06/17/24 22:35 Parainfluenza 2 (PCR) Not Detected (NotDetected) 06/17/24 22:35 Parainfluenza 3 (PCR) Not Detected (NotDetected) 06/17/24 22:35 Parainfluenza 4 (PCR) Not Detected (NotDetected) 06/17/24 22:35 RSV (PCR) Not Detected (NotDetected) 06/17/24 22:35 Entero/Rhino (PCR) Not Detected (NotDetected) 06/17/24 22:35 Impressions Chest X-Ray 06/17/24 22:18 Exam(s): XR CXR 1 VIEW EXAM: XR Chest, 1 View CLINICAL HISTORY: Reason for exam: Dyspnea. TECHNIQUE: Frontal view of the chest. COMPARISON: 05/15/2020. FINDINGS: There is a poor inspiratory effort. Lungs: No consolidation. No pulmonary vascular congestion is seen. Pleural space: No pleural effusion is seen. No pneumothorax. Heart: Heart is top normal in size.. Mediastinum: Unremarkable. Bones/joints: Grossly unremarkable. IMPRESSION: No acute pulmonary disease.. Electronically signed by: Mayito Parson MD 06/17/24 23:33 PM [place], [place] [phone] CT Scan Report Patient: MARY KATE COX Admit Date: 06/18/24 MR#: [id number] Address1: [address] [place] [address] Acct ID:[id number] Address2: Date: 1975 [facility] Zip: [place] [address] Age: 48 Location: 2S Sex: F Room/Bed: [facility] Att Phy: Randell Garsia MD Diagnosis: DYSPNEA Julieta Phy: Rosita Grimes MD Service Date: 06/18/24 Fam Phy: Interpreting Phy: Vu Varela MDAdmit Phy: Randell Garsia MD Ordering Phy: Randell Garsia MD cc: ~ EXAM: CT angio chest PE protocol CLINICAL HISTORY: PE 116 cc opti 320 TECHNIQUE: Contiguous axial images were obtained from the neck base through the upper abdomen following intravenous administration of iodinated contrast material. Angiographic images were processed, 3D MIP images were acquired for interpretation. If IV contrast material had not been administered, the likelihood of detecting abnormalities relevant to the patient's condition would have been substantially decreased. Coronal and sagittal 3-D MIPs were likewise performed and indicated to increase the sensitivity of detecting diffuse clinically relevant pathology. CT scan was performed according to ALARA (as low as reasonable achievable). COMPARISON: None. FINDINGS: Adequate contrast bolus without evidence of pulmonary embolism. The central airways are patent. The lungs are clear. No pleural effusion. The heart, aorta, and pulmonary arteries are of normal size and configuration. There are no appreciable coronary artery and aortic atherosclerotic calcifications. No pericardial effusion is identified. The thyroid is unremarkable. No mediastinal, hilar, or axillary lymphadenopathy is noted. No suspicious lytic or sclerotic osseous lesions are identified. IMPRESSION: 1. No evidence of pulmonary embolism or pulmonary disease. Electronically signed by Vu Varela 06-18-2024 03:36 AM Dictated: 06/18/24 0224 Transcribed: Code Status & VTE Plan Code Status Full code VTE Prophylaxis Plan VTE Prophylaxis will be ordered: Yes PG Care Time/CCT Total # of Minutes Spent Total Time Spent with Patient: Total time spent is greater than 50% in coordination of care (as documented) at patient's floor/unit and/or counseling patient: Coding Level of Care Code 23178 INT INP/OBS CARE 3/75MIN Diagnoses Dyspnea R06.00 Sjogren's syndrome, with unspecified organ involvement M35.00 Sjogren's organ involvement: unspecified organ involvement Chronic diastolic CHF (congestive heart failure) I50.32 Type 2 diabetes mellitus without complication, without long-term current use of insulin E11.9 Diabetes mellitus termite control servicer insulin use: without halfway use Diabetes mellitus complication status: without complication (2) Sjogrens syndrome Sjogren's organ involvement: unspecified organ involvement Qualified Code(s): M35.00 - Sicca syndrome, unspecified (4) T2DM (type 2 diabetes mellitus) Diabetes mellitus termite control servicer insulin use: without termite control servicer use Diabetes mellitus complication status: without complication Qualified Code(s): E11.9 - Type 2 diabetes mellitus without complications
[2024-06-18] MEDS: FUROSEMIDE 40 MG TAB PO ONE (01:26)
[2024-06-18] MEDS: HYDROXYCHLOROQUINE SULFATE 200 MG TAB PO STA (01:26)
[2024-06-18] MEDS: ROSUVASTATIN CALCIUM 20 MG TAB PO STA (01:26)
[2024-06-18] MEDS: DOCUSATE SODIUM/SENNA 50/8.6MG TAB PO STA (01:26)
[2024-06-18] MEDS ORDERED: GLUCOSE 10 TAB/TUBE PO PRN (01:56)
[2024-06-18] MEDS ORDERED: ALBUTEROL HFA 8 GM INHALER INH PRN (01:56)
[2024-06-18] MEDS ORDERED: GLUCAGON FOR INJ 1 MG VIAL SQ PRN (01:56)
[2024-06-18] MEDS ORDERED: CARBOHYDRATES FOR HYPOGLYCEMIA PO PRN (01:56)
[2024-06-18] MEDS ORDERED: DEXTROSE 50% 50 ML SYRINGE IV PRN (01:56)
[2024-06-18] MEDS ORDERED: GLUCOSE 40% GEL 15 GM TUBE PO PRN (01:56)
[2024-06-18] MEDS ORDERED: ACETAMINOPHEN 325 MG TAB PO PRN (01:56)
[2024-06-18] MEDS ORDERED: CYCLOBENZAPRINE HCL 5 MG TAB PO PRN (01:56)
[2024-06-18] MEDS: OPTIRAY 320 125ml IV ONE (02:21)
--- NOTE | 2024-06-18 03:36 | CT Scan Report ---
EXAM: CT angio chest PE protocol CLINICAL HISTORY: PE 116 cc opti 320 TECHNIQUE: Contiguous axial images were obtained from the neck base through the upper abdomen following intravenous administration of iodinated contrast material. Angiographic images were processed, 3D MIP images were acquired for interpretation. If IV contrast material had not been administered, the likelihood of detecting abnormalities relevant to the patient's condition would have been substantially decreased. Coronal and sagittal 3-D MIPs were likewise performed and indicated to increase the sensitivity of detecting diffuse clinically relevant pathology. CT scan was performed according to ALARA (as low as reasonable achievable). COMPARISON: None. FINDINGS: Adequate contrast bolus without evidence of pulmonary embolism. The central airways are patent. The lungs are clear. No pleural effusion. The heart, aorta, and pulmonary arteries are of normal size and configuration. There are no appreciable coronary artery and aortic atherosclerotic calcifications. No pericardial effusion is identified. The thyroid is unremarkable. No mediastinal, hilar, or axillary lymphadenopathy is noted. No suspicious lytic or sclerotic osseous lesions are identified. IMPRESSION: 1. No evidence of pulmonary embolism or pulmonary disease. Electronically signed by Vu Tucker 06-18-2024 03:36 AM
[2024-06-18] MEDS: LEVOTHYROXINE SODIUM 100 MCG TABLET PO SCH (05:47)
--- NOTE | 2024-06-18 07:47 | Hospitalist Progress Note ---
Date of Service June 18, 2024 Assessment & Plan (1) Sjogrens syndrome: (2) Dyspnea: (3) T2DM (type 2 diabetes mellitus): (4) Chronic diastolic CHF (congestive heart failure): Plan (1) Dyspnea: (2) Sjogrens syndrome: (3) Chronic diastolic CHF (congestive heart failure): (4) T2DM (type 2 diabetes mellitus): Plan 1) Dyspnea on exertion/diastolic CHF - patient admitted to telemetry for serial cardiac enzymes, serial EKG's, cardiac rhythm monitoring and a 2-D echocardiogram with Dopplers. BNP, 18 (on admission); Initial troponin, 4.0 <-- 4.6, ( CT angiography chest PE protocol was negative for PE Respiratory BioFire test negative Follows with cardiology Dr. Tamez at [facility] alberto Grajeda D/C summary sent Continue aspirin 81 mg daily, and furosemide 40 mg at bedtime Echocardiogram pending 2) T2 Diabetes mellitus Hold Mounjaro but continue upon discharge Placed on Accu-Cheks with NovoLog SSI hemoglobin A1C, 7.3 3) Sjogren syndrome Continue hydroxychloroquine 4) Hyperlipidemia Continue rosuvastatin 20 mg daily during hospital stay and as outpt Check a fasting lipid panel: TChol, 176; LDL, 101; HDL, 50, TG, 125 5) Obstructive sleep apnea CPAP at bedtime Code status: Full code Disposition: PCU-Tele/Obs FENGI: Heart Healthy, Carb Consistent T2DM diet; VTE Prophylaxis: Admission and Anticipated Discharge Date Admission Date: June 18, 2024 Subjective patient wants cadiologist Dashawn to see notes Review of Systems Constitutional: no fever, no chills and no fatigue Respiratory: no cough and no dyspnea Cardiovascular: + edema; no chest pain, no lightheadedne ss and no calf pain Gastrointestinal: no abdominal pain, no nausea and no vomiting Genitourinary: no dysuria and no urinary frequency Physical Exam Constitutional: WD/WN, vitals as above Respiratory: normal respiratory effort, lungs clear to auscultation Cardiovascular: Extremities: normal capillary refill; no calf tenderness and no pedal edema Gastrointestinal (Abdomen): normal bowel sounds, soft, nontender, no hepatosplenomegaly Psychiatric: A+Ox3, euthymic affect Results & Data Results & Data Vital Signs (Past 12 Hours) Vital Signs Temp Pulse Pulse Resp BP BP Pulse Ox 06/18/24 03:47 77 06/18/24 02:53 74 18 98 06/18/24 02:05 06/18/24 01:57 35.4 C L 76 18 141/88 H 98 06/18/24 01:43 75 18 133/85 95 06/18/24 00:00 85 18 133/78 95 06/17/24 22:57 97 H 18 104/71 94 06/17/24 22:26 82 18 95 06/17/24 22:25 87 06/17/24 22:15 81 18 133/78 95 06/17/24 22:15 06/17/24 22:02 36.4 C L 90 18 127/67 95 06/17/24 21:59 O2 Del Method FiO2 06/18/24 03:47 06/18/24 02:53 21 06/18/24 02:05 Room Air 06/18/24 01:57 Room Air 06/18/24 01:43 Room Air 06/18/24 00:00 Room Air 06/17/24 22:57 Room Air 06/17/24 22:26 Room Air 06/17/24 22:25 06/17/24 22:15 Room Air 06/17/24 22:15 Room Air 06/17/24 22:02 Room Air 06/17/24 21:59 Room Air Resident Activity Tracking Resident Involvement: Resident Care Provided Care Provided: Adult Hospital Medicine (1) Sjogrens syndrome Sjogren's organ involvement: unspecified organ involvement Qualified Code(s): M35.00 - Sicca syndrome, unspecified (3) T2DM (type 2 diabetes mellitus) Diabetes mellitus complication status: without complication Diabetes mellitus termite renewal inspector insulin use: without termite renewal inspector use Qualified Code(s): E11.9 - Type 2 diabetes mellitus without complications
[2024-06-18] MEDS: INSULIN ASPART PER UNIT CHARGE SC SCH (08:04)
[2024-06-18] MEDS: HYDROXYCHLOROQUINE SULFATE 200 MG TAB PO SCH (09:07)
[2024-06-18] MEDS: ROSUVASTATIN CALCIUM 20 MG TAB PO SCH (09:07)
[2024-06-18] MEDS: ASPIRIN 81 MG ECTAB PO SCH (09:07)
[2024-06-18 09:52] LABS: Basophils # (auto) 0.03 K/uL (0.00-0.20); Basophils % (auto) 0.4 %; Eosinophils # (auto) 0.06 K/uL (0.00-0.50); Eosinophils % (auto) 0.8 %; Hematocrit (blood only) 41.2 % (37.0-47.0); Hemoglobin 13.1 g/dl (12.0-16.0); Immature Granulocytes # (auto) 0.03 K/uL (0.01-0.20); Immature Granulocytes % (auto) 0.4 %; Lymphocytes # (auto) 2.04 K/uL (1.20-3.40); Lymphocytes % (auto) 27.1 %; Mean Corpuscular Hemoglobin 27.9 pg (25.0-34.0); Mean Corpuscular Hgb Conc 31.8 g/dL (32.0-36.0); Mean Corpuscular Volume 87.8 fL (80.0-100.0); Mean Platelet Volume 9.8 fL (9.4-12.4); Monocytes # (auto) 0.44 K/uL (0.11-0.59); Monocytes % (auto) 5.9 %; Neutrophils # (auto) 4.92 K/uL (1.40-6.50); Neutrophils % (auto) 65.4 %; Platelet Count 313 K/uL (130-400); RDW Coefficient of Variation 15.4 % (11.5-14.5); RDW Standard Deviation 48.8 fL (36.4-46.3); Red Blood Count 4.69 M/uL (4.20-5.40); White Blood Count 7.52 K/ul (4.8-10.8)
[2024-06-18 10:09] LABS: Albumin Level 3.8 gm/dl (3.4-5.0); BUN Creatinine Ratio 22.5 (10-20); Calcium 9.3 mg/dl (8.6-10.3); Chol HDL Ratio 3.5 (0-5); Creatinine Clr Calc Pharmacy 141.9 ml/min; Phosphorus 3.8 mg/dl (2.5-4.9)
[2024-06-18 10:16] LABS: Troponin I High Sensitivity 3.2 pg/ml (0-14)
[2024-06-18 11:14] LABS: Estimated Average Glucose 163 mg/dl; Hemoglobin A1C 7.3 % (4.5-5.6)
[2024-06-18 11:22] VITALS: BP 125/86; PULSE 77; TEMP 97.3; O2SAT 92
--- NOTE | 2024-06-18 15:49 | Electrocardiogram Report ---
Test Reason : Blood Pressure : */* mmHG Vent. Rate : 86 BPM Atrial Rate : 86 BPM P-R Int : 166 ms QRS Dur : 92 ms QT Int : 374 ms P-R-T Axes : 62 32 25 degrees QTcB Int : 447 ms Normal sinus rhythm Normal ECG When compared with ECG of 15-May-2020 18:42, Premature supraventricular complexes are no longer Present Confirmed by Adal Busby ([id number]) on 06/18/2024 3:48:49 PM Referred By: REFERRED SELF Confirmed By: Adal Busby
--- NOTE | 2024-06-18 16:47 | Discharge Summary ---
Date of Service June 18, 2024 Admission HPI Per Admitting Provider The patient is a 48-year-old female with a past medical history including hyperlipidemia, morbid obesity, obstructive sleep apnea on CPAP, hypothyroidism, Sjogren's syndrome, spasm, diabetes mellitus, bladder leiomyoma, GERD, chronic diastolic CHF, vitamin D deficiency, and small fiber neuropathy. She presents to the emergency department with symptoms initially began 3 weeks ago after a fall onto her right side of her chest. She has had intermittent issues with shortness of breath since that time, but more so over the past couple days. She reports that she takes her furosemide after she gets home from work, to avoid having to run to the bathroom while at work. She denies any recent travels or sick exposures. Admission Exam Per Admitting Provider The patient is awake, alert and oriented 3, well developed and well nourished, normocephalic and atraumatic, lying in bed and in no acute distress. HEENT--PERRL, EOMI, mucous membranes and oropharynx normal Neck--supple. No JVD. No bruits. Thyroid normal, trachea midline, no adenopathy. Heart--normal S1 and S2. No murmurs, rubs or gallops. Lungs--clear bilaterally, no respiratory distress, no accessory muscle use. Abdomen--normal bowel sounds and soft. Nontender. Nondistended. Morbidly obese Extremities--1+ bilateral pretibial pitting edema. Dermatologic--normal skin turgor, normal color, no abnormal lymph nodes, no rash. Neurologic--cranial nerves II through XII grossly intact. Rheumatologic--normal range of motion, but somewhat limited by body habitus Psychiatric--normal affect. Principal Diagnosis CHF exacerbation Discharge Exam Constitutional WD/WN, vitals as above Respiratory normal respiratory effort, lungs clear to auscultation Cardiovascular Extremities: normal capillary refill; no calf tenderness and no pedal edema Gastrointestinal (Abdomen) normal bowel sounds, soft, nontender, no hepatosplenomegaly Psychiatric A+Ox3, euthymic affect Discharge Data Allergies Allergy/AdvReac Type Severity Reaction Status Date / Time Penicillins Allergy Unknown HAPPENED Verified 04/09/24 16:08 AN citalopram AdvReac Intermediate Anxiety Verified 04/09/24 16:08 Consultations 06/18/24 00:21 ED Decision to Admit Stat Ordered Studies 06/18/24 02:05 CT angio chest PE protocol Stat Hospital Course (1) Sjogrens syndrome: (2) Dyspnea: (3) T2DM (type 2 diabetes mellitus): (4) Chronic diastolic CHF (congestive heart failure): Plan Plan 1) Dyspnea on exertion/diastolic CHF - patient admitted to telemetry for serial cardiac enzymes, serial EKG's, cardiac rhythm monitoring and a 2-D echocardiogram with Dopplers. BNP, 18 (on admission); Initial troponin, 4.0 <-- 4.6, ( CT angiography chest PE protocol was negative for PE Respiratory BioFire test negative Follows with cardiology Dr. Tamez at [facility] alberto Grajeda D/C summary sent Continue aspirin 81 mg daily, and furosemide 40 mg at bedtime Echocardiogram pending F/U w/ Toll Line Repairer at next scheduled appt in July, 2) T2 Diabetes mellitus Hold Mounjaro but continue upon discharge Placed on Accu-Cheks with NovoLog SSI hemoglobin A1C, 7.3 3) Sjogren syndrome Continue hydroxychloroquine 4) Hyperlipidemia Continue rosuvastatin 20 mg daily during hospital stay and as outpt Check a fasting lipid panel: TChol, 176; LDL, 101; HDL, 50, TG, 125 5) Obstructive sleep apnea CPAP at bedtime Total Time Total Time Spent Total Time Spent (In Minutes): 25 minutes Discharge Plan Discharge Items Patient Disposition: Home - Self-Care Reason For Visit: DYSPNEA Discharge Diagnosis: CHF exacerbation Condition on Discharge: Good Activity: Resume your previous activity Non-emergency contact: Primary Care Provider and Toll Line Repairer Call non-emergency contact if: you have any medication questions and your symptoms worsen Follow-up/Referrals: Rosita Grimes MD [Primary Care Provider] - 06/20/24 1:00 pm (Hospital follow up on June 20 at 1 pm) Diet: Carb Consistent or DM2 Addtl Attending Provider Instructions: You were admitted to the hospital for dyspnea, increased swelling of lower legs. You were treated with home medication, including furosemide, 40 mg, PO. A discharge summary will be sent to your primary care physician to ensure continuity of care. Please bring this discharge summary with you to your next office appointment so that your provider can review it at that time. Follow-up appointments: Make a follow-up appointment with your PCP within the next week. It is very important that you follow up with them shortly after discharge from the hospital. Keep all your follow-up appointments as already scheduled. If you cannot make an appointment, notify your provider. Medications: Your medication list has been reviewed and reconciled upon discharge to ensure accuracy and continuity of care. An updated list of all your medications is included with your hospital discharge paperwork. Please review this list closely, and make note of any changes. Take your medications as instructed; do not skip a dose of your medicines. Make sure all of your doctors know every medicine you are taking (including kaah-sdb-sakmyvt medicines, vitamins, and supplements). Call your primary care provider before taking any new medicines (including bacc-bfg-gvwhbla medicines, vitamins, and supplements), because some of these may interact with your current medications, or may make your symptoms worse. Tell your primary care provider if you cannot afford your medications. CONTACT YOUR PRIMARY CARE PROVIDER if you experience any of the following: shortness of breath, worsening swelling of the lower legs Difficulty following your treatment plan, or difficulty taking medications CALL 911 OR GO TO THE EMERGENCY DEPARTMENT if you experience any of the following: Sudden, severe abdominal pain or nausea/vomiting Severe chest pain, or chest pain that radiates (moves) to your jaw or arm Sudden, severe shortness of breath or difficulty breathing Thank you for allowing us to participate in your care Pending Studies at Discharge: Yes Studies:: Echocardiogram Stand-Alone Forms: [facility] Pergunter, Smoking Cessation Medications and DC Order Prescriptions: Continued (DME) Auto Titrating CPAP Misc .Route Qty: 1 0RF Rx Instructions: 15-20 cm H2O, mask fit to patient comfort, compliance data. (DME) FreeStyle Bradley 3 Sensor Device See Rx Instructions .Route Qty: 2 11RF Hold Instructions: on backorder Patient Comments: not wearing at this time. Rx Instructions: change sensor every 14 days rosuvastatin 20 mg tablet 20 mg PO DAILY Qty: 90 1RF Mounjaro 10 mg/0.5 mL pen injector 10 mg subcut Q7D Qty: 2 6RF Rx Instructions: Inject 10 mg into the abdomen once a week. (DME) FreeStyle Bradley 3 Plus Sensor Device See Rx Instructions .Route Qty: 2 11RF Rx Instructions: Chagne sensor every 15 days (DME) blood-glucose meter [OneTouch Verio Meter] Misc See Rx Instructions miscellaneous .MEDSUPPLY Qty: 1 0RF Rx Instructions: As directed albuterol sulfate 90 mcg/actuation HFA aerosol inhaler 2 puff inhalation Q6H PRN (Reason: shortness of breath or wheezing) Qty: 6.7 0RF gabapentin 300 mg capsule 300 mg PO BID PRN (Reason: Pain) aspirin [Adult Aspirin Regimen] 81 mg tablet,delayed release (DR/EC) 81 mg PO DAILY cyclobenzaprine 5 mg tablet See Rx Instructions PO TID PRN (Reason: muscle spasm) Qty: 90 1RF Rx Instructions: Take 1-2 tablets PO three times a day PRN; (DME) OneTouch Verio test strips Strip See Rx Instructions .MEDSUPPLY Qty: 150 5RF Rx Instructions: check blood sugars 4 times a day hydroxychloroquine [Plaquenil] 200 mg Tablet 200 mg PO BID sennosides-docusate sodium [Senna-S] 8.6-50 mg tablet 3 tab-cap PO QPM furosemide 40 mg Tablet 40 mg PO HS cholecalciferol (vitamin D3) [Vitamin D3] 50 mcg (2,000 unit) Capsule 2,000 unit PO HS levothyroxine [Synthroid] 100 mcg tablet 100 mcg PO DAILY Discharge Orders: Discharge Order (Routine); Ordered 06/18/24 Ordered By: Adal Duggan/Other Patient Handouts: Managing Type 2 Diabetes, Special Foot Care for Diabetes Admission Data Admit Date/Time: 06/18/24 00:59 Attending Provider: Jeremy Rosa Admit Provider: Randell Garsia Primary Care Provider: Rosita Grimes Other Providers: Randell Garsia Other Interventions: Discharge Summary Assessment (RN) Last Done: 06/18/24 14:36 Supervising Physician Co-Signing Physician Notes ATTESTATION I also saw the patient and confirmed frazier portions of the history and exam. I agree with the impression and plan in the resident documentation, and as summarized below. Early this afternoon, the patient is feeling well. She denies any chest pain or shortness of breath. She is hoping for discharge today. She does follow with cardiology in [place] yearly; she gets echocardiograms every other year. Next appointment is in July. EXAM VSS as noted Pleasant, alert, oriented. Cardiovascular regular rate and rhythm. No ectopy is appreciated with prolonged auscultation. Respirations are nonlabored. Lungs are clear throughout. Extremities without edema. DATA Labs CBC is unremarkable BMP unremarkable except for elevated glucose A1c 7.3% Serial troponin I, negative BNP 18 Imaging Resting echocardiogram completed today shows preserved left ventricular function with mild concentric left ventricular hypertrophy. IMPRESSION & PLAN Dyspnea, improved with extra diuresis, question mild diastolic heart failure ( evaluate chest x-ray, CT scan showed no vascular congestion; BNP low) Shows a history of mild left ventricular hypertrophy, confirmed by echocardiogram. No signs to suggest infection She feels quite well today. Discharge home seems reasonable with follow-up with her PCP in the next 1-2 weeks, and with cardiology as scheduled in July. Discussed signs and symptoms for which she should return to the emergency department.. Additional per resident documentation
--- NOTE | 2024-06-18 17:49 | XCELERA ---
[id number] \\[email or web address]\[id number]
[2024-06-18] MEDS ORDERED: DOCUSATE SODIUM/SENNA 50/8.6MG TAB PO SCH (21:00)
[2024-06-18] MEDS ORDERED: NON-FORMULARY MEDICATION (Auto Titrating Cpap misc) SCH (21:00)
[2024-06-18] MEDS ORDERED: FUROSEMIDE 40 MG TAB PO SCH (21:00)
[2024-06-18] MEDS ORDERED: CHOLECALCIFEROL 25 MCG (1000 UNITS) TAB PO SCH (21:00)
== END 2024-06-18 15:21 | disposition home or self-care (01) ==
LOC: 2S 21:59 → ED 21:59 → SUATTDRO 06-18 00:59 → 2S 06-18 01:43